=== PATIENT | female | born 1990 | race Caucasian/White ===

== ENCOUNTER → 2019-06-02 | Outpatient (CLI) | payer BC | LOC: LAB FS 09:33 | PROVIDERS: ATTEND Obstetrics & Gynecology | DX: O20.0 Threatened abortion (principal) | CPT/HCPCS: 36415; 84702 ==

== ENCOUNTER 2019-06-04 10:00 | Emergency (ER) | payer BC ==
--- NOTE | 2019-06-04 10:25 | NUR ---
DR YOUNG TALKED WITH PATIENT IN WAITING ROOM DECIDED TO LEAVE .
== END 2019-06-04 10:25 | disposition left against medical advice (07) ==
LOC: EDUNIT# 10:00 → ER 10:01
DX: O20.9 Hemorrhage in early pregnancy, unspecified (principal); Z3A.01 Less than 8 weeks gestation of pregnancy

== ENCOUNTER → 2019-06-06 | Outpatient (CLI) | payer BC | LOC: LAB FS 11:03 | PROVIDERS: ATTEND Obstetrics & Gynecology | DX: O20.0 Threatened abortion (principal); Z3A.00 Weeks of gestation of pregnancy not specified; Z37.9 Outcome of delivery, unspecified | CPT/HCPCS: 36415; 84702 ==

== ENCOUNTER 2019-06-22 05:28 | Outpatient (CLI) | payer BC ==
[~2019-06-22] VITALS: Ht 165 cm; Wt 128.6 kg
[2019-06-22] MEDS ORDERED: PROG200C10 PV (13:15)
[2019-06-22] MEDS ORDERED: SPIR100T4 PO (13:15)
[2019-06-22] MEDS ORDERED: PREN1TAB79 PO (13:15)
[2019-06-22] MEDS ORDERED: LEVO25TA5 PO (13:15)
[2019-06-23] MEDS ORDERED: IBUP-1773 PO (07:11)
[2019-06-23] MEDS ORDERED: HYDR-4226 PO (07:11)
== END 2019-06-22 13:37 | disposition home or self-care (01) ==
LOC: PREOP 05:28
PROVIDERS: ATTEND Obstetrics & Gynecology
DX: Z01.818 Encounter for other preprocedural examination (principal)

== ENCOUNTER → 2019-11-21 | Outpatient (CLI) | payer BC ==
[~2019-11-21] MED LIST: HYDR-4226 PO; IBUP-1773 PO; LEVO25TA5 PO; PREN1TAB79 PO; PROG200C10 PV; SPIR100T4 PO
== END ==
LOC: LAB FS 14:44
PROVIDERS: ATTEND Nurse Practitioner Women's Health
DX: Z32.00 Encounter for pregnancy test, result unknown (principal); E03.9 Hypothyroidism, unspecified
CPT/HCPCS: 36415; 84443; 84702

== ENCOUNTER → 2019-11-25 | Outpatient (CLI) | payer BC | LOC: LAB FS 13:05 | PROVIDERS: ATTEND Nurse Practitioner Women's Health | DX: E03.9 Hypothyroidism, unspecified (principal) | CPT/HCPCS: 36415; 84443; 84702 ==

== ENCOUNTER 2020-01-20 00:04 | Emergency (ER) | payer BC ==
[~2020-01-20] VITALS: Ht 165 cm; Wt 150.8 kg
--- OUTSIDE RECORDS SUMMARY | 2020-01-20 00:13 | XMS REPORT ---
Author Author Socorro BERNSTEIN Organization [facility] Address [address] [place] [address] Care Team Providers Care Manipulative Therapy Specialist Name Role Phone MAGEN BERNSTEIN Unavailable PROBLEMS Type Condition ICD9-CM Code [id number] Code Onset Dates Condition S tatus SNOMED Code Problem Acquired hypothyroidism E03.9 Active [id number] ALLERGIES No Information ENCOUNTERS Encounter Location Date Diagnosis [facility] [address] [place] [address] [id number] [place] [address] Aug, [address] [place] [address] May, [address] [place] [address] May, [facility] [address] [place] [address] May, Possible Z32.[address] [facility] [address] [place] [address] [id number] [place] [address] Mar, [id number] [place] [address] Oct, [facility] [address] [place] [id number] [place] [address] Oct, Abnormal weight gain R63.[address] [facility] [address] [place] [id number] [address] Oct, [facility] [address] [place] [id number] [address] Oct, [facility] [address] [place] [id number] [address] Aug, Acquired hypothyroidism E03.[id number] [place] [address] Aug, [facility] [address] [facility] [id number] [place] [address] Aug, Abnormal weight gain R63.5 [facility] [address] [id number] [place] [address] Aug, IMMUNIZATIONS No Known Immunizations SOCIAL HISTORY Never Assessed REASON FOR VISIT Refill request PLAN OF CARE VITAL SIGNS MEDICATIONS Medication Instructions Dosage Frequency Start Date End Date Duration S tatus Levothyroxine Sodium 25 MCG Orally Once a day 1 tablet on an empty stomach in the morning 24h 30 day(s) Active RESULTS No Results PROCEDURES No Known procedures INSTRUCTIONS MEDICATIONS ADMINISTERED No Known Medications MEDICAL (GENERAL) HISTORY Type Description Date Surgical History Ear Tubes Surgical History tonsillectomy
--- OUTSIDE RECORDS SUMMARY | 2020-01-20 00:13 | XMS REPORT | Continuity of Care Document ---
Author Organization Unknown Address Unknown Phone Unavailable Allergies Active Description Code Type Severity Reaction Onset Reported/Identified Relationship to Patient Clinical Status Yes levofloxacin [id number] Drug Allergy Severe JOINT PAIN/"POP 06/22/2019 Yes sulfamethoxazole [id number] Drug Allergy Severe FLUSHING, HOT, 06/22/2019 Yes trimethoprim [id number] Drug Allergy Severe FLUSHING, HOT, 06/22/2019 Yes cefaclor [id number] Drug Allergy Mild HIVES 06/22/2019 Medications There is no data. Problems Date Dx Coded Attending Type Code Diagnosis Diagnosed By 06/15/2019 WILLIAM ODEN DO, Ot O20.0 THREATENED 06/22/2019 WILLIAM ODEN DO, Ot O20.0 THREATENED 06/22/2019 WILLIAM ODEN DO Ot Z37.9 OUTCOME OF DELIVERY, UNSPECIFIED 06/22/2019 WILLIAM ODEN DO, Ot Z3A.00 WEEKS OF GESTATION OF NOT SPEC 06/23/2019 WILLIAM ODEN DO Ot E03.9 HYPOTHYROIDISM, UNSPECIFIED 06/23/2019 WILLIAM ODEN DO Ot E66.01 MORBID (SEVERE) OBESITY DUE TO EXCESS CA 06/23/2019 WILLIAM ODEN DO Ot F41.8 OTHER SPECIFIED ANXIETY DISORDERS 06/23/2019 WILLIAM ODEN DO Ot O02.1 MISSED 06/23/2019 WILLIAM ODEN DO Ot O73.1 RETAINED PORTIONS OF PLACENTA AND MEMBRA 06/23/2019 WILLIAM ODEN DO Ot Z3A.08 8 WEEKS GESTATION OF 06/23/2019 WILLIAM ODEN DO Ot Z68.42 BODY MASS INDEX (BMI) 45.0-49.9, ADULT 06/23/2019 WILLIAM ODEN DO, Ot Z79.899 OTHER NURSING HOME (CURRENT) DRUG THERAPY 06/23/2019 WILLIAM ODEN DO Ot Z80.3 FAMILY HISTORY OF MALIGNANT NEOPLASM OF 06/23/2019 WILLIAM ODEN DO Ot Z82.49 FAMILY HX OF ISCHEM HEART DIS AND OTH DI 06/23/2019 AKSHAT KAYWILLIAM Ot Z83.3 FAMILY HISTORY OF DIABETES MELLITUS 06/23/2019 AKSHAT WILLIAM KAY Ot Z88.1 ALLERGY STATUS TO OTHER ANTIBIOTIC AGENT 06/23/2019 DAVEYNANDO WILLIAM KAY Ot Z88.2 ALLERGY STATUS TO SULFONAMIDES STATUS 06/23/2019 AKSHAT KAYWILLIAM Ot Z88.8 ALLERGY STATUS TO OTH DRUG/MEDS/BIOL SUB 06/23/2019 AKSHAT KAYWILLIAM Ot Z90.89 ACQUIRED ABSENCE OF OTHER ORGANS 06/30/2019 AKSHAT KAYWILLIAM Ot E03.9 HYPOTHYROIDISM, UNSPECIFIED 06/30/2019 AKSHAT KAYWILLIAM Ot E66.01 MORBID (SEVERE) OBESITY DUE TO EXCESS CA 06/30/2019 DAVEYNANDO WILLIAM KAY Ot F41.8 OTHER SPECIFIED ANXIETY DISORDERS 06/30/2019 DAVEYNANDO WILLIAM KAY Ot O02.1 MISSED 06/30/2019 DAVEYNANDO WILLIAM KAY Ot O73.1 RETAINED PORTIONS OF PLACENTA AND MEMBRA 06/30/2019 AKSHAT WILLIAM KAY Ot Z3A.08 8 WEEKS GESTATION OF 06/30/2019 AKSHAT WILLIAM KAY Ot Z68.42 BODY MASS INDEX (BMI) 45.0-49.9, ADULT 06/30/2019 AKSHAT WILLIAM KAY Ot Z79.899 OTHER NURSING HOME (CURRENT) DRUG THERAPY 06/30/2019 DAVEYNANDO WILLIAM KAY Ot Z80.3 FAMILY HISTORY OF MALIGNANT NEOPLASM OF 06/30/2019 AKSHAT WILLIAM KAY Ot Z82.49 FAMILY HX OF ISCHEM HEART DIS AND OTH DI 06/30/2019 DAVEYNANDO WILLIAM KAY Ot Z83.3 FAMILY HISTORY OF DIABETES MELLITUS 06/30/2019 DAVEYNANDO WILLIAM KAY Ot Z88.1 ALLERGY STATUS TO OTHER ANTIBIOTIC AGENT 06/30/2019 DAVEYNANDO WILLIAM KAY Ot Z88.2 ALLERGY STATUS TO SULFONAMIDES STATUS 06/30/2019 DAVEYNANDO WILLIAM KAY Ot Z88.8 ALLERGY STATUS TO OTH DRUG/MEDS/BIOL SUB 06/30/2019 DAVEYNANDO WILLIAM KAY Ot Z90.89 ACQUIRED ABSENCE OF OTHER ORGANS 06/30/2019 WILLIAM ODEN DO Ot E03.9 HYPOTHYROIDISM, UNSPECIFIED 06/30/2019 DAVEYNANDO WILLIAM KAY Ot E66.01 MORBID (SEVERE) OBESITY DUE TO EXCESS CA 06/30/2019 AKSHAT KAYWILLIAM Ot F41.8 OTHER SPECIFIED ANXIETY DISORDERS 06/30/2019 AKSHAT WILLIAM KAY Ot O02.1 MISSED 06/30/2019 AKSHAT KAYWILLIAM Ot O73.1 RETAINED PORTIONS OF PLACENTA AND MEMBRA 06/30/2019 AKSHAT KAYWILLIAM Ot Z3A.08 8 WEEKS GESTATION OF 06/30/2019 AKSHAT WILLIAM KAY Ot Z68.42 BODY MASS INDEX (BMI) 45.0-49.9, ADULT 06/30/2019 AKSHAT KAYWILLIAM Ot Z79.899 OTHER BUFFING WHEEL RAKER (CURRENT) DRUG THERAPY 06/30/2019 AKSHAT WILLIAM KAY Ot Z80.3 FAMILY HISTORY OF MALIGNANT NEOPLASM OF 06/30/2019 AKSHAT WILLIAM KAY Ot Z82.49 FAMILY HX OF ISCHEM HEART DIS AND OTH DI 06/30/2019 DAVEYNANDO WILLIAM KAY Ot Z83.3 FAMILY HISTORY OF DIABETES MELLITUS 06/30/2019 WILLIAM ODEN DO, Ot Z88.1 ALLERGY STATUS TO OTHER ANTIBIOTIC AGENT 06/30/2019 WILLIAM ODEN DO Ot Z88.2 ALLERGY STATUS TO SULFONAMIDES STATUS 06/30/2019 WILLIAM ODEN DO, Ot Z88.8 ALLERGY STATUS TO [facility] DRUG/MEDS/BIOL SUB 06/30/2019 WILLIAM ODEN DO Ot Z90.89 ACQUIRED ABSENCE OF OTHER ORGANS 07/04/2019 WILLIAM ODEN DO Ot E03.9 HYPOTHYROIDISM, UNSPECIFIED 07/04/2019 WILLIAM ODEN DO Ot E66.01 MORBID (SEVERE) OBESITY DUE TO EXCESS CA 07/04/2019 WILLIAM ODEN DO Ot F41.8 OTHER SPECIFIED ANXIETY DISORDERS 07/04/2019 DAVEYNANDO WILLIAM KAY Ot O02.1 MISSED 07/04/2019 WILLIAM ODEN DO Ot O73.1 RETAINED PORTIONS OF PLACENTA AND MEMBRA 07/04/2019 WILLIAM ODEN DO, Ot Z3A.08 8 WEEKS GESTATION OF 07/04/2019 DAVEYWILLIAM COLLIER DO Ot Z68.42 BODY MASS INDEX (BMI) 45.0-49.9, ADULT 07/04/2019 AKSHAT WILLIAM KAY Ot Z79.899 OTHER NURSING HOME (CURRENT) DRUG THERAPY 07/04/2019 WILLIAM ODEN DO Ot Z80.3 FAMILY HISTORY OF MALIGNANT NEOPLASM OF 07/04/2019 WILLIAM ODEN DO Ot Z82.49 FAMILY HX OF ISCHEM HEART DIS AND OTH DI 07/04/2019 WILLIAM ODEN DO Ot Z83.3 FAMILY HISTORY OF DIABETES MELLITUS 07/04/2019 WILLIAM ODEN DO Ot Z88.1 ALLERGY STATUS TO OTHER ANTIBIOTIC AGENT 07/04/2019 WILLIAM ODEN DO Ot Z88.2 ALLERGY STATUS TO SULFONAMIDES STATUS 07/04/2019 AKSHAT KAY WILLIAM Selby Ot Z88.8 ALLERGY STATUS TO OTH DRUG/MEDS/BIOL SUB 07/04/2019 WILLIAM ODEN DO Ot Z90.89 ACQUIRED ABSENCE OF OTHER ORGANS 11/24/2019 KILTON, KAYJosep B STEERER Ot E03.9 HYPOTHYROIDISM, UNSPECIFIED 11/24/2019 KILTON, KAYI B STEERER Ot Z32.00 ENCOUNTER FOR TEST, RESULT UNK 11/28/2019 KILTON, KAYI B STEERER Ot E03.9 HYPOTHYROIDISM, UNSPECIFIED 11/29/2019 KILTON, KAYI B STEERER Ot E03.9 HYPOTHYROIDISM, UNSPECIFIED 12/10/2019 KILTON, KAYI B STEERER Ot E03.9 HYPOTHYROIDISM, UNSPECIFIED 12/10/2019 KILTON, KAYI B STEERER Ot Z32.00 ENCOUNTER FOR TEST, RESULT UNK 12/10/2019 KILTON, KAYI B STEERER Ot E03.9 HYPOTHYROIDISM, UNSPECIFIED 01/19/2020 KILTON, JOHNI B STEERER Ot E03.9 HYPOTHYROIDISM, UNSPECIFIED Procedures There is no data. Results Test Result Range Serum or plasma choriogonadotropin measu rement (units/volume) - 06/02/19 09:50 Serum or plasma choriogonadotropin measurement (units/ volume) 9553 m[iU]/mL <5 Serum or plasma choriogonadotropin measu rement (units/volume) - 06/06/19 11:15 Serum or plasma choriogonadotropin measurement (units/ volume) 16779 m[iU]/mL <5 Complete blood count (CBC) with automate d white blood cell (WBC) differential - 06/23/19 06:20 Blood leukocytes automated count (number/volume) 9.8 10*3/uL 4.3-11.0 Blood erythrocytes automated count (number/volume) 4.73 10*6/uL 4.35-5.85 Venous blood hemoglobin measurement (mass/volume) 14.1 g/dL 11.5-16.0 Blood hematocrit (volume fraction) 42 % 35-52 Automated erythrocyte mean corpuscular volume 89 [ foz_us] 80-99 Automated erythrocyte mean corpuscular h emoglobin (mass per erythrocyte) 30 pg 25-34 Automated erythrocyte mean corpuscular h emoglobin concentration measurement (mass/volume) 33 g/dL 32-36 Automated erythrocyte distribution width ratio 13. 3 % 10.0- 14.5 Automated blood platelet count (count/volume) 310 10*3/uL 130-400 Automated blood platelet mean volume measurement 9.7 [foz_us] 7.4-10.4 Automated blood neutrophils/100 leukocytes 66 % 42-75 Automated blood lymphocytes/100 leukocytes 23 % 12-44 Blood monocytes/100 leukocytes 10 % 0-12 Automated blood eosinophils/100 leukocytes 2 % 0-10 Automated blood basophils/100 leukocytes 0 % 0-10 Blood neutrophils automated count (number/volume) 6.4 10*3 1.8-7.8 Blood lymphocytes automated count (number/volume) 2.2 10*3 1.0-4.0 Blood monocytes automated count (number/volume) 1. 0 10*3 0.0-1.0 Automated eosinophil count 0.2 10*3/uL 0 .0-0.3 Automated blood basophil count (count/volume) 0.0 10*3/uL 0.0-0.1 Blood type T Indirect antibody screen pa karoline - 06/23/19 06:20 WRISTBAND NUMBER [id number] NRG ABO+Rh group OP NRG Blood group antibody screen NEGATIVE NR G Methicillin resistant Staphylococcus aur eus (MRSA) screening culture - 06/23/19 06:20 Methicillin resistant Staphylococcus aureus (MRSA) scr eening culture NEG NRG Serum or plasma choriogonadotropin measu rement (units/volume) - 11/21/19 15:04 Serum or plasma choriogonadotropin measurement (units/ volume) 516 m[iU]/mL <5 THYROID STIMULATING HORMONE - 11/21/19 1 5:04 THYROID STIMULATING HORMONE 3.57 u[iU]/mL 0.35-4.94 THYROID STIMULATING HORMONE - 03/27/20 1 3:19 THYROID STIMULATING HORMONE 3.04 u[iU]/mL 0.35-4.94 Serum or plasma choriogonadotropin measu rement (units/volume) - 11/25/19 13:19 Serum or plasma choriogonadotropin measurement (units/ volume) 3085 m[iU]/mL <5 Encounters ACCT No. Visit Date/Time Discharge Status Pt. Type Provider Facility Loc./Unit Complaint [id number] 11/25/2019 13:05:00 23:59:59 CLS Outpatient MANNY VALDOVINOS STEERER [facility] FS TSH [id number] 11/21/2019 14:44:00 23:59:59 CLS Outpatient MANNY VALDOVINOS STEERER [facility] FS ENCOUNTER FOR PREGNANC Y TEST [id number] 06/23/2019 05:52:00 10:12:00 DIS Outpatient WILLIAM ODEN DO [facility] SDC MISSED AB [id number] 06/22/2019 05:28:00 13:37:00 DIS Outpatient WILLIAM ODEN DO [facility] PREOP MISSED [id number] 2019 11:03:00 23:59:59 CLS Outpatient WILLIAM ODEN DO [facility] LAB FS O20.0 [id number] 06/04/2019 10:01:00 10:25:00 DIS Emergency NIDHI HERNANDEZ, DAVIDE Mckay [facility] ER 6 WEEKS PREGNAN T, BLEEDING,SHARP PAIN [id number] 06/02/2019 09:33:00 23:59:59 CLS Outpatient WILLIAM ODEN DO [facility] FS O20.0 [id number] 01/20/2020 00:08:[address] Emergency MARIELA MCMILLAN DO [facility] ER 13 1/2 WEEKS PREG,VAG BLEEDI NG
[2020-01-20 00:45] LABS: BILIRUBIN,URINE NEGATIVE (NEGATIVE); CLARITY,URINE SL CLOUDY; COLOR,URINE ORANGE; GLUCOSE, URINE (UA) NEGATIVE (NEGATIVE); KETONES,URINE NEGATIVE (NEGATIVE); LEUKOCYTE ESTERASE ,URINE NEGATIVE (NEGATIVE); NITRITE,URINE NEGATIVE (NEGATIVE); PROTEIN,URINE NEGATIVE (NEGATIVE)
[2020-01-20 00:56] LABS: BACTERIA,URINE TRACE /HPF; RBC,URINE 50-100 /HPF
[2020-01-20 00:57] LABS: CALCIUM OXALATE CRYSTALS,UR FEW /LPF; SQUAMOUS EPITHELIAL CELL,UR 0-2 /HPF
[2020-01-20 01:22] LABS: BASOPHILS % (AUTO) 0 % (0-10); EOSINOPHILS # (AUTO) 0.1 10^3/uL (0.0-0.3); EOSINOPHILS % (AUTO) 1 % (0-10); HEMATOCRIT 41 % (35-52); HEMOGLOBIN 13.7 G/DL (11.5-16.0); LYMPHOCYTES # (AUTO) 1.9 X 10^3 (1.0-4.0); LYMPHOCYTES % (AUTO) 15 % (12-44); MEAN CORPUSCULAR HEMOGLOBIN 30 PG (25-34); MEAN CORPUSCULAR HGB CONC 34 G/DL (32-36); MEAN CORPUSCULAR VOLUME 89 FL (80-99); MEAN PLATELET VOLUME 9.6 FL (7.4-10.4); MONOCYTES % (AUTO) 8 % (0-12); NEUTROPHILS # (AUTO) 9.8 X 10^3 (1.8-7.8); NEUTROPHILS % (AUTO) 76 % (42-75); PLATELET COUNT 296 10^3/uL (130-400); RED CELL DISTRIBUTION WIDTH 13.2 % (10.0-14.5); WHITE BLOOD COUNT 12.9 10^3/uL (4.3-11.0)
[2020-01-20 01:35] LABS: CHLORIDE 104 MMOL/L (98-107); POTASSIUM 3.8 MMOL/L (3.6-5.0); SODIUM 137 MMOL/L (135-145)
[2020-01-20 01:36] LABS: CALCIUM 9.6 MG/DL (8.5-10.1); GLUCOSE 104 MG/DL (70-105)
[2020-01-20 01:38] LABS: CARBON DIOXIDE 22 MMOL/L (21-32)
[2020-01-20 01:40] LABS: CREATININE SERUM 0.65 MG/DL (0.60-1.30); GFR ESTIMATED > 60
[2020-01-20 01:41] LABS: BUN/CREATININE RATIO 18
--- NOTE | 2020-01-20 02:18 | ED GU-Female ---
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 Pt states she is 13.5 wks , LMP 10/18/19. Pt states she has had 2 prior miscarriages, last one being in May 2019 when she was 6 wks and had to get a D&C. Pt denies any pain or cramping at this time. Nursing Sepsis Screen: No Definite Risk Source: patient History of Present Illness Date Seen by Provider: January 20, 2020 Time Seen by Provider: 00:20 Initial Comments PT ARRIVES VIA POV FROM HOME C/O VAGINAL BLEEDING. PT STATES SHE IS 13 1/2 WEEKS . LMP 10/18/19. EDC 07/24/20 HAD ROUTINE VISIT YESTERDAY WITH DR. ODEN--STATES IN-OFFICE ULTRASOUND WAS DONE FOR HEART TONES, DUE TO NOT BEING ABLE TO HEAR WITH REGULAR DOPPLER, DUE TO BODY HABITUS STATES SHE WOKE UP AROUND 2240 AND HAD BRIGHT RED BLOOD ON THE TISSUE WHEN SHE WIPED AND THERE WAS A LITTLE BLOOD IN THE TOILET. STATES BLEEDING HAS STOPPED NOW. PT HAS NOT USED ANY PADS OR TAMPONS, AND HAS NOT SOAKED HER CLOTHING NO PAIN OR CRAMPING NO VAGINAL DISCHARGE NO URINARY SYMPTOMS NO FEVER HAS HAD ONGOING SLIGHT NAUSEA, NOT NOW, AND NO DIFFERENT THAN NORMAL PT IS AB 2--D&C X 1. FIRST TRIMESTER MISCARRIAGES PT STATES SHE HAS ANTIPHOSPHOLIPID SYNDROME, AND IS TAKING A BLOOD THINNER SINCE BECOMING NO FEVER OR RECENT ILLNESS NO KNOWN SICK CONTACTS OR EXPOSURE TO CORONAVIRUS NO RECENT TRAVEL PCP: [facility] MERCHANDISE PICKUP/RECEIVING ASSOCIATE: DR. ODEN Allergies and Home Medications Allergies Coded Allergies: levofloxacin (Verified Allergy, Severe, JOINT PAIN/"POPPING", 06/22/19) sulfamethoxazole (Verified Allergy, Severe, FLUSHING, HOT, DIZZY, N/V, 06/22/19) trimethoprim (Verified Allergy, Severe, FLUSHING, HOT, DIZZY, N/V, 06/22/19) cefaclor (Verified Allergy, Mild, HIVES, 06/22/19) Home Medications Hydrocodone/Acetaminophen 1 Each Tablet, 1 TAB PO Q4-6HR Prescribed by: WILLIAM ODEN on 06/23/19710 Ibuprofen 600 Mg Tablet, 600 MG PO Q6H Prescribed by: WILLIAM ODEN on 06/23/19710 Levothyroxine Sodium 25 Mcg Tablet, 25 MCG PO DAILY, (Reported) Vit W-Ca,Fe,FA(<1 mg) 1 Each Tablet, 1 EACH PO DAILY, (Reported) Spironolactone 100 Mg Tablet, 100 MG PO BID, (Reported) Patient Home Medication List Home Medication List Reviewed: Yes Review of Systems Review of Systems Constitutional: no symptoms reported; No chills, No diaphoresis, No fever Respiratory: no symptoms reported Cardiovascular: no symptoms reported Gastrointestinal: no symptoms reported Genitourinary: see HPI : Yes LMP: Oct 18, 2019 Musculoskeletal: no symptoms reported Skin: no symptoms reported Psychiatric/Neurological: No Symptoms Reported Endocrine: No Symptoms Reported Past Ijndiyi-Gcmtrs-Ywanrk Hx Past Med/Social Hx: Reviewed and Corrections made Patient Social History Alcohol Use: Denies Use Recreational Drug Use: No Smoking Status: Never a Smoker 2nd Hand Smoke Exposure: No Recent Foreign Travel: No Contact w/Someone Who Travel: No Recent Infectious Disease Expo: No Recent Hopitalizations: No Seasonal Allergies Seasonal Allergies: Yes Past Medical History Surgeries: Yes (BMT, uteral septum removed, D&C May 2019) Adenoidectomy, Tonsillectomy Respiratory: No Cardiac: No Neurological: Yes Headaches /Migraines Reproductive Disorders: Yes (MISCARRIAGES X 2--ANTIPHOSPHOLIPID SYNDROME) Female Reproductive Disorders: Menstrual Problems, Ovarian Cyst, Polycystic Ovarian Dis Sexually Transmitted Disease: No HIV/AIDS: No Genitourinary: No Gastrointestinal: Yes Gastroesophageal Reflux Musculoskeletal: No Endocrine: Yes (MORBID OBESITY) Hypothyroidsim HEENT: No Loss of Vision: Denies Hearing Impairment: Denies Cancer: No Psychosocial: Yes (MILD) Anxiety Integumentary: No Blood Disorders: No Adverse Reaction/Blood Tranf: No Physical Exam Vital Signs Vital Signs - First Documented 01/20/20 00:27 Temp 36.8 Pulse 94 Resp 21 B/P (MAP) 139/68 (91) Pulse Ox 97 O2 Delivery Room Air Capillary Refill : Less Than 3 Seconds Height, Weight, BMI Height: '" Weight: lbs. oz. kg; 55.00 BMI Method: General Appearance: no apparent distress, obese (MORBIDLY OBESE WITH LARGE PANNUS) Cardiovascular: regular rate, rhythm, no murmur Respiratory: normal breath sounds, no respiratory distress, no accessory muscle use Gastrointestinal: non tender, soft Back: normal inspection, no CVA tenderness, no vertebral tenderness Extremities: normal inspection Neurologic/Psychiatric: lotus notes administrator II-XII nml as tested, no motor/sensory deficits, alert, normal mood/affect, oriented x 3 Skin: normal color, warm/dry Progress/Results/Core Measures Suspected Sepsis Recent Fever Within 48 Hours: No Infection Criteria Present: None New/Unexplained Altered Menta: No Sepsis Screen: No Definite Risk SIRS Temperature: Pulse: 94 Respiratory Rate: 21 Laboratory Tests 01/20/20 01:15: White Blood Count 12.9H Blood Pressure 139 /68 Mean: 91 Laboratory Tests 01/20/20 01:15: Creatinine 0.65, Platelet Count 296 Results/Orders Lab Results My Orders Vital Signs/I&O Capillary Refill : Less Than 3 Seconds Blood Pressure Mean: 91 Progress Note : Progress Note NO BLEEDING OR ANY SYMPTOMS DURING ER STAY PT STATES BLEEDING HAS STOPPED FOR NOW Departure Impression Primary Impression: Threatened in early Disposition: 01 HOME, SELF-CARE Condition: Improved Departure-Patient Inst. Referrals: [facility] ([place]P) Primary Care Physician MAGEN BERNSTEIN (Family) Primary Care Physician WILLIAM ODEN DO Patient Instructions: Bleeding With (DC), Threatened Miscarriage (DC) Add. Discharge Instructions: NOTHING IN VAGINA--NO TAMPONS, DOUCHING OR INTERCOURSE TYLENOL NEEDED FOR PAIN KEEP AN ACCURATE PAD COUNT--RETURN TO ER IF SOAKING MORE THAN 1 MAXI PAD AN HOUR FOLLOW UP WITH DR. ODEN IN THE NEXT COUPLE OF DAYS FOR FURTHER CARE--CALL THIS AM TO MAKE AN APPOINTMENT All discharge instructions reviewed with patient and/or family. Voiced understanding. MARIELA MCMILLAN DO January 20, 2020 02:18
[2020-01-20 02:37] VITALS: BP 132/72
== END 2020-01-20 02:39 | disposition home or self-care (01) ==
LOC: EDUNIT# 00:04 → ER 00:08
DX: O20.0 Threatened abortion (principal); O99.351 Diseases of the nervous system complicating pregnancy, first trimester; G43.909 Migraine, unspecified, not intractable, without status migrainosus; O99.281 Endocrine, nutritional and metabolic diseases complicating pregnancy, first trimester; E03.9 Hypothyroidism, unspecified; O99.211 Obesity complicating pregnancy, first trimester; E66.01 Morbid (severe) obesity due to excess calories; Z3A.13 13 weeks gestation of pregnancy; Z88.1 Allergy status to other antibiotic agents; Z88.2 Allergy status to sulfonamides
CPT/HCPCS: 36415; 80048; 81000; 84702; 84703; 85025; 86900; 86901; 87088

== ENCOUNTER → 2020-03-07 | Outpatient (CLI) | payer BC ==
--- NOTE | 2020-03-07 11:43 | Diagnostic Imaging Report ---
INDICATION: survey. TECHNIQUE: Multiple real-time grayscale images were obtained over the gravid uterus. COMPARISON: None. FINDINGS: Study is significantly limited due to patient's very large body habitus. There is a fetus in a breech presentation with a heart rate of 143 BPM. Placenta appears to be to the left. Overall amniotic fluid volume appears normal. Cervical length is approximately 3.6 cm. survey is somewhat limited due to patient's body habitus. bladder and stomach are visualized. The kidneys were not well visualized. The brain as well as four-chamber heart views were poorly visualized. The three-vessel cord, cord insertion, and spine were poorly visualized. Biometrical measurements are as follows: Biparietal 4.5 cm, age 19 weeks 5 days. Head circumference 17.87 cm, age 20 weeks 3 days. Abdominal circumference 15.02 cm, age 20 weeks 2 days. Femur length 3.08 cm, age 19 weeks 4 days. Sonographic estimate age: 20 weeks 0 days. Sonographic estimated date of delivery: 07/25/2020. Estimated Weight: 323 gm (+/- 47 gm). LMP percentile: 35%. heart rate: 143 beats per minute. number: 1 of 1. IMPRESSION: Severely compromised study due to patient's large body habitus. There is a single live fetus measuring approximately 20 weeks 0 days gestation with estimated date of confinement of 07/25/2020. survey is markedly limited. Dictated by: Dictated on workstation # [id number]
== END ==
LOC: RAD 09:19
PROVIDERS: ATTEND Nurse Practitioner Women's Health
DX: Z34.92 Encounter for supervision of normal pregnancy, unspecified, second trimester (principal); Z3A.20 20 weeks gestation of pregnancy
CPT/HCPCS: 76805

== ENCOUNTER 2020-07-18 05:59 | Inpatient (IN) | payer BC ==
[~2020-07-18] VITALS: Ht 165.1 cm; Wt 152.0 kg
[2020-07-18] VITALS (50 sets, daily range): BP systolic 123–171; BP diastolic 57–102
--- NOTE | 2020-07-18 06:10 | NUR ---
HUNTER SOLIS presented to unit via AMBULATORY from ED, accompanied by ADULT MALE, with c/o INDUCTION. HUNTER SOLIS weighed, gowned, voided, and to bed. EFHM and TOCO applied. HUNTER SOLIS oriented to bed controls, call light, TV, heat, and A/C controls.
[2020-07-18] MEDS ORDERED: MINERAL OIL CONCENTRATE 99.9% 15 ML UDC TOP PRN (07:45)
--- NOTE | 2020-07-18 08:06 | History & Physical-OB ---
OB - Chief Complaint & HPI Date/Time Date of Admission: Date of Admission: Jul 18, 2020 at 05:59 Date seen by a Provider: Jul 18, 2020 Time Seen by a Provider: 07:45 Chief Complaint/History OB-Reason for Admission/Chief: Induction of Labor Hx : 1 Hx Para: 0 Expected Date of Delivery: Jul 24, 2020 Gestational Age in Weeks: 39 Gestational Age in Days: 1 Other reason for admission: Induction of labor Admission Nurse Assessment Rev: Yes Allergies and Home Medications Allergies Coded Allergies: levofloxacin (Verified Allergy, Severe, JOINT PAIN/"POPPING", 06/22/19) sulfamethoxazole (Verified Allergy, Severe, FLUSHING, HOT, DIZZY, N/V, 06/22/19) trimethoprim (Verified Allergy, Severe, FLUSHING, HOT, DIZZY, N/V, 06/22/19) cefaclor (Verified Allergy, Mild, HIVES, 06/22/19) Home Medications Hydrocodone/Acetaminophen 1 Each Tablet, 1 TAB PO Q4-6HR Prescribed by: WILLIAM ODEN on 06/23/19 07 Ibuprofen 600 Mg Tablet, 600 MG PO Q6H Prescribed by: WILLIAM ODEN on 06/23/19 0711 Levothyroxine Sodium 25 Mcg Tablet, 25 MCG PO DAILY, (Reported) Vit W-Ca,Fe,FA(<1 mg) 1 Each Tablet, 1 EACH PO DAILY, (Reported) Spironolactone 100 Mg Tablet, 100 MG PO BID, (Reported) Patient Home Medication List Home Medication List Reviewed: Yes OB - History Hx of Present Care: Yes Ultrasounds: Normal mid trimester US Obstetrical Complications: None Medical Complications: None Delivery History Adverse Rxn to Tranfusion: No Patient Past Medical History BMI >50 Social History/Family History HIV/AIDS: No Sexually Transmitted Disease: No 2nd Hand Smoke Exposure: No OB - Admission Exam Physical Exam HEENT: NCAT Heart: Rhythm Normal Lungs: Clear Abdomen: Gravid Extremities: Normal Reflexes: Normal Cervical Dilatation: 3cm Effacement: 75% Station: -1 Membranes: Intact Heart Rate: 130's Accelerations: Accelerations Present Decelerations: No Decelerations Short Term Variability: Present Mcfp Variability: Average (6-25) Contractions on Admission: >10 Minutes Apart Intensity: Mild OB - Assessment/Plan/Diagnosis Assessment Assessment: induction of labor Admission Dx 30 yo @ 39 weeks Induction of labor GBS neg BMI > 50 Admission Status: Inpatient Order (span 2 midnights) Reason for Inpatient Admission: Induction of labor at term Plan Plan: Induction Induction Method: WILLIAM LE DO Jul 18, 2020 08:06
[2020-07-18 08:20] LABS: BASOPHILS % (AUTO) 0 % (0-10); EOSINOPHILS # (AUTO) 0.1 10^3/uL (0.0-0.3); EOSINOPHILS % (AUTO) 1 % (0-10); HEMATOCRIT 41 % (35-52); HEMOGLOBIN 13.5 g/dL (11.5-16.0); LYMPHOCYTES # (AUTO) 1.5 10^3/uL (1.0-4.0); LYMPHOCYTES % (AUTO) 12 % (12-44); MEAN CORPUSCULAR HEMOGLOBIN 28 pg (25-34); MEAN CORPUSCULAR HGB CONC 33 g/dL (32-36); MEAN CORPUSCULAR VOLUME 86 fL (80-99); MEAN PLATELET VOLUME 10.1 fL (9.0-12.2); MONOCYTES % (AUTO) 8 % (0-12); NEUTROPHILS # (AUTO) 9.4 10^3/uL (1.8-7.8); NEUTROPHILS % (AUTO) 77 % (42-75); PLATELET COUNT 246 10^3/uL (130-400); WHITE BLOOD COUNT 12.2 10^3/uL (4.3-11.0)
[2020-07-18] MEDS: D5 LR IV SOLUTION 1,000 ML IV SCH ×2 (09:13→16:45)
[2020-07-18] MEDS ORDERED: OXYTOCIN PRE-MIX DRIP 500 ML IV SCH ×2 (09:53→21:37)
[2020-07-18] MEDS ORDERED: CATHETER FLUSH 10 ML SYR IV SCH ×2 (14:00→22:00)
[2020-07-18] MEDS ORDERED: CLINDAMYCIN 900 MG/50 ML IVPB 50 ML IV ONE (21:14)
[2020-07-18] MEDS ORDERED: CITRIC ACID/SOB CIT (BICITRA) 30 ML UDC ONE (21:14)
[2020-07-18] MEDS ORDERED: METOCLOPRAMIDE INJ 10 MG/2 ML (REGLAN) ONE (21:14)
[2020-07-18] MEDS ORDERED: FAMOTIDINE 20MG/2ML IV (PEPCID) ONE (21:15)
[2020-07-18] MEDS: LACTATED RINGERS 1,000 ML IV PRN ×2 (21:28→22:27)
[2020-07-18] MEDS ORDERED: CITRIC ACID/SOB CIT (BICITRA) 30 ML UDC PO ONE ×2 (21:30→22:00)
[2020-07-18] MEDS ORDERED: METOCLOPRAMIDE INJ 10 MG/2 ML (REGLAN) IV ONE ×2 (21:30→22:00)
[2020-07-18] MEDS ORDERED: CATHETER FLUSH 10 ML SYR IV PRN (21:30)
[2020-07-18] MEDS ORDERED: FAMOTIDINE 20MG/2ML IV (PEPCID) IV ONE ×2 (21:30→22:00)
--- NOTE | 2020-07-18 21:37 | Progress Note ---
Standard Progress Note Progress Notes/Assess & Plan Date Seen by a Provider: Jul 18, 2020 Time Seen by a Provider: 21:15 Progress/Assessment & Plan Patient evaluated and found to have made little to no change. She reports getting very uncomfortable and breathing through contractions rating them 8- 9/10. Her contraction pattern is regular and has been for the past 4 hours, she has reached a max dose of 20mu Pitocin. The is a small caput noted on the presenting vertex. I discussed with the patient CPD highly suspected due to lack of progress. We reviewed continuing induction vs. PLTCS. Risk involved in each, after discussion with her , both she and him were agreeable to proceed. OR staff notified. WILLIAM ODEN DO Jul 18, 2020 21:37
[2020-07-18] MEDS ORDERED: ONDANSETRON 4 MG/2 ML (SDV) Z0FRAN ONE (21:43)
[2020-07-18] MEDS ORDERED: MEASLES,MUMPS,RUBELLA 1 EA INJ SC SCH (21:45)
[2020-07-18] MEDS ORDERED: TETANUS,DIPTH,PERTUSS P/F (BOOSTRIX) 0.5 ML VIAL IM SCH (21:45)
[2020-07-18] MEDS ORDERED: ONDANSETRON 4 MG/2 ML (SDV) Z0FRAN IVP PRN (21:45)
[2020-07-18] MEDS ORDERED: fentaNYL INJECTION 100 MCG/2 ML AMP ONE (21:47)
[2020-07-18] MEDS ORDERED: OXYTOCIN PRE-MIX DRIP 1,000 ML IV ONE (23:02)
[2020-07-18] MEDS ORDERED: KETOROLAC 30 MG/ML VIAL ONE (23:02)
[2020-07-18] MEDS: KETOROLAC 30 MG/ML VIAL IV SCH (23:05)
--- NOTE | 2020-07-18 23:29 | Anesthesia-Regional Post-Op ---
Regional Patient Condition Mental Status: Alert, Oriented x3 Circulation: Same as Pre-Op Headache: Absent Sensation: Full Recovery Motor Block: Absent Post Op Complications Complications None Follow Up Care/Instructions Patient Instructions None needed. Anesthesia/Patient Condition Patient is doing well, no complaints, stable vital signs, no apparent adverse anesthesia problems. No complications reported per nursing. JULIANA MACIEL CRNA Jul 18, 2020 23:29
[2020-07-18] MEDS ORDERED: diphenhydrAMINE 50 MG/ML INJ (BENADRYL) IV PRN (23:30)
[2020-07-18] MEDS ORDERED: ONDANSETRON 4 MG/2 ML (SDV) Z0FRAN IV PRN (23:30)
[2020-07-18] MEDS ORDERED: NALOXONE 0.4 MG/ML 1 ML (NARCAN) VIAL IV PRN ×2 (23:30)
[2020-07-18] MEDS ORDERED: METOCLOPRAMIDE INJ 10 MG/2 ML (REGLAN) IV PRN (23:30)
[2020-07-19] VITALS (8 sets, daily range): BP systolic 128–149; BP diastolic 66–95
--- NOTE | 2020-07-19 00:10 | NUR ---
PT TO ROOM FROM RECOVERY BY BED AT THIS TIME. BEDSIDE REPORT RECEIVED FROM Naya RIVERA RN
--- NOTE | 2020-07-19 00:30 | NUR ---
ASSISTANCE GIVEN WITH . LATCH OBTAINED WITH NIPPLE SHIELD.
--- NOTE | 2020-07-19 01:50 | NUR ---
PT REQUESTS PAIN MEDS. STATES IS SENSITIVE TO MEDS SO WILL ADMINISTER 1 TAB AT THIS TIME.
[2020-07-19] MEDS: HYDROcodone/APAP 5 MG/325 MG (LORTAB) TAB PO PRN ×3 (01:53→22:38)
--- NOTE | 2020-07-19 03:30 | NUR ---
PERICARE COMPLETED. LOCHIA LIGHT.
[2020-07-19] MEDS: KETOROLAC 30 MG/ML VIAL IV SCH ×3 (05:12→18:07)
--- NOTE | 2020-07-19 05:15 | NUR ---
PT AWAKE AND BEGINNING TO FEEL LIKE SHE NEEDS TO VOID. WILL ADMINISTER TORADOL AT THIS TIME AND GET UP AFTER IT TAKE EFFECT.
[2020-07-19 05:45] LABS: BASOPHILS % (AUTO) 0 % (0-10); EOSINOPHILS % (AUTO) 0 % (0-10); HEMATOCRIT 38 % (35-52); HEMOGLOBIN 12.6 g/dL (11.5-16.0); LYMPHOCYTES # (AUTO) 0.9 10^3/uL (1.0-4.0); LYMPHOCYTES % (AUTO) 5 % (12-44); MEAN CORPUSCULAR HEMOGLOBIN 29 pg (25-34); MEAN CORPUSCULAR HGB CONC 33 g/dL (32-36); MEAN CORPUSCULAR VOLUME 87 fL (80-99); MEAN PLATELET VOLUME 10.4 fL (9.0-12.2); MONOCYTES # (AUTO) 0.8 10^3/uL (0.0-1.0); MONOCYTES % (AUTO) 5 % (0-12); NEUTROPHILS # (AUTO) 15.5 10^3/uL (1.8-7.8); NEUTROPHILS % (AUTO) 89 % (42-75); PLATELET COUNT 230 10^3/uL (130-400); WHITE BLOOD COUNT 17.4 10^3/uL (4.3-11.0)
--- NOTE | 2020-07-19 05:45 | NUR ---
ASSIST X2 WITH GETTING PT UP TO BATHROOM. PT WHIT VERY WELL. VOIDED 900 CC WITHOUT DIFFICULTY. PERICARE COMPLETED. PT RETURNED TO BED.
--- NOTE | 2020-07-19 06:48 | Postpartum Progress Note ---
Note Note Day # 1 Subjective: Patient is without complaints. Ambulating, voiding. Tolerating a regular diet without nausea or vomiting. Normal lochia. Pain is well controlled with oral pain medications. Objective: Physical Exam: General - Alert and oriented, no apparent distress Abdomen - Soft, appropriately tender to palpation, non-distended, fundus firm at umbilicus Extremities - no edema, negative Derrick's bilaterally Incision- c/d/i Assessment: POD 1 PLTCS Acute blood loss anemia BMI > 55 Elevated DVT risk Plan: Routine care. Encourage breast feeding. Encourage ambulation. Ferrous sulfate supplementation. Plan for discharge tomorow Vitals - Labs Vital Signs - I&O Vital Signs Date Time Temp Pulse Resp B/P (MAP) Pulse Ox O2 Delivery O2 Flow Rate FiO2 07/19/20 00:10 36.9 20 149/82 (104) 99 Room Air 07/19/20 00:10 Room Air 07/19/20 00:00 Room Air 07/19/20 00:00 20 130/95 (107) 99 Room Air 07/18/20 23:50 20 139/72 (94) 99 Room Air 07/18/20 23:45 Room Air 07/18/20 23:40 20 140/72 (94) 99 Room Air 07/18/20 23:30 20 139/72 (94) 99 Room Air 07/18/20 23:30 Room Air 07/18/20 23:20 20 123/82 (96) 98 Room Air 07/18/20 23:13 Room Air 07/18/20 23:13 36.9 20 151/80 (103) 100 Room Air 07/18/20 21:45 37.3 100 20 127/59 (81) Room Air 07/18/20 21:30 20 Room Air 07/18/20 21:15 20 Room Air 07/18/20 21:00 37.6 103 20 156/96 (116) Room Air 07/18/20 20:45 97 20 136/66 (89) Room Air 07/18/20 20:30 82 20 135/69 (91) Room Air 07/18/20 20:15 20 Room Air 07/18/20 20:00 107 18 148/71 (96) Room Air 07/18/20 19:45 106 18 134/85 (101) Room Air 07/18/20 19:30 20 Room Air 07/18/20 19:15 37.3 93 20 157/72 (100) Room Air 07/18/20 19:00 98 20 150/70 (96) Room Air 07/18/20 18:45 100 20 134/61 (85) Room Air 07/18/20 18:30 105 20 171/96 (121) Room Air 07/18/20 18:15 96 20 160/91 (114) Room Air 07/18/20 18:00 95 20 145/85 (105) Room Air 07/18/20 17:45 37.9 93 20 154/65 (94) Room Air 07/18/20 17:30 101 20 147/65 (92) Room Air 07/18/20 17:15 Room Air 07/18/20 17:00 96 20 154/67 (96) Room Air 07/18/20 16:45 82 20 148/66 (93) Room Air 07/18/20 16:30 95 20 146/65 (92) Room Air 07/18/20 16:15 126 20 157/93 (114) Room Air 07/18/20 16:00 133 20 147/92 (110) Room Air 07/18/20 15:45 36.2 129 20 165/93 (117) Room Air 07/18/20 15:30 Room Air 07/18/20 15:15 98 20 140/68 (92) Room Air 07/18/20 15:00 98 20 131/61 (84) Room Air 07/18/20 14:45 102 20 158/87 (110) Room Air 07/18/20 14:30 104 20 148/85 (106) Room Air 07/18/20 14:15 112 20 136/69 (91) Room Air 07/18/20 14:00 112 20 128/70 (89) Room Air 07/18/20 13:45 37.8 110 20 130/72 (91) Room Air 07/18/20 13:30 110 20 127/63 (84) Room Air 07/18/20 13:18 104 20 166/93 (117) Room Air 07/18/20 13:15 103 20 161/81 (107) Room Air 07/18/20 12:45 100 20 133/57 (82) Room Air 07/18/20 12:30 Room Air 07/18/20 12:15 104 20 129/57 (81) Room Air 07/18/20 12:00 104 20 138/59 (85) Room Air 07/18/20 11:45 107 20 154/68 (96) Room Air 07/18/20 11:30 37.1 112 20 135/66 (89) Room Air 07/18/20 11:15 116 20 156/99 (118) Room Air 07/18/20 11:00 116 20 156/99 (118) Room Air 07/18/20 10:45 135/62 (86) Room Air 07/18/20 10:30 98 20 135/62 (86) Room Air 07/18/20 10:15 110 20 136/61 (86) Room Air 07/18/20 09:45 108 20 145/78 (100) Room Air 07/18/20 09:16 116 20 148/81 (103) Room Air 07/18/20 09:15 118 20 135/102 (113) Room Air 07/18/20 08:35 109 20 136/99 (111) Room Air 07/18/20 08:15 36.3 110 20 98 Room Air 07/18/20 08:15 36.3 110 20 128/82 (97) Room Air I & O 07/19/20 07:00 Intake Total 2050 ml Output Total 165 ml Balance 1885 ml Labs Laboratory Tests 07/18/20 08:00: White Blood Count 12.2H, Red Blood Count 4.77, Hemoglobin 13.5, Hematocrit 41, Mean Corpuscular Volume 86, Mean Corpuscular Hemoglobin 28, Mean Corpuscular Hemoglobin Concent 33, Red Cell Distribution Width 14.6H, Platelet Count 246, Mean Platelet Volume 10.1, Immature Granulocyte % (Auto) 2, Neutrophils (%) ( Auto) 77H, Lymphocytes (%) (Auto) 12, Monocytes (%) (Auto) 8, Eosinophils (%) (Auto) 1, Basophils (%) (Auto) 0, Neutrophils # (Auto) 9.4H, Lymphocytes # (Auto) 1.5, Monocytes # (Auto) 1.0, Eosinophils # (Auto) 0.1, Basophils # (Auto) 0.0, Immature Granulocyte # (Auto) 0.2H 07/18/20 08:15: Coronavirus (COVID-19)(PCR) Negative 07/19/20 05:27: White Blood Count 17.4H, Red Blood Count 4.38, Hemoglobin 12.6, Hematocrit 38, Mean Corpuscular Volume 87, Mean Corpuscular Hemoglobin 29, Mean Corpuscular Hemoglobin Concent 33, Red Cell Distribution Width 14.4, Platelet Count 230, Mean Platelet Volume 10.4, Immature Granulocyte % (Auto) 1, Neutrophils (%) (Auto) 89H, Lymphocytes (%) (Auto) 5L, Monocytes (%) (Auto) 5, Eosinophils (%) (Auto) 0, Basophils (%) (Auto) 0, Neutrophils # (Auto) 15.5H, Lymphocytes # (Auto) 0.9L, Monocytes # (Auto) 0.8, Eosinophils # (Auto) 0.0, Basophils # (Auto) 0.0, Immature Granulocyte # (Auto) 0.2H WILLIAM ODEN DO Jul 19, 2020 06:48
--- NOTE | 2020-07-19 07:25 | NUR ---
Assisted to BR with Wanda Wallace RN - voided 350mls - dionna care by RN. 0930 Up to BR independently - voided 150 mls - per care by RN due to pt's obesity and recent surgery.
--- NOTE | 2020-07-19 07:35 | Anesthesia-Regional Post-Op ---
Regional Patient Condition Mental Status: Alert, Oriented x3 Circulation: Same as Pre-Op Headache: Absent Sensation: Full Recovery Motor Block: Absent Post Op Complications Complications None Follow Up Care/Instructions Patient Instructions None needed. Anesthesia/Patient Condition Patient is doing well, no complaints, stable vital signs, no apparent adverse anesthesia problems. No complications reported per nursing. KATIE STUART CRNA Jul 19, 2020 07:35
[2020-07-19 08:06] LABS: BAND NEUTROPHILS 5 %; BASOPHILS % (MANUAL) 0 %; EOSINOPHILS % (MANUAL) 0 %; LYMPHOCYTES % (MANUAL) 8 %; MONOCYTES % (MANUAL) 2 %; NEUTROPHILS % (MANUAL) 85 %; RBC MORPH NORMAL
[2020-07-19] MEDS: DOCUSATE SODIUM 100 MG (COLACE) CAP PO SCH ×2 (09:44→21:23)
[2020-07-19] MEDS: ENOXAPARIN 60 MG/0.6 ML (LOVENOX) SYR SQ SCH ×2 (09:49→21:23)
--- NOTE | 2020-07-19 09:59 | OPERATIVE REPORT ---
DATE OF SERVICE: PREOPERATIVE DIAGNOSES: 1. A 30-year-old G3, P0 at 39 weeks and 1 day gestation. 2. Cephalopelvic disproportion. 3. BMI of 55. POSTOPERATIVE DIAGNOSES: 1. A 30-year-old G3, P0 at 39 weeks and 1 day gestation. 2. Cephalopelvic disproportion. 3. BMI of 55. PROCEDURE: Primary low transverse section. SURGEON: Salomón Muñoz DO CUSTOMER COUNTER REPRESENTATIVE: Vianey Sanabria DNP, who was necessary for manipulation and retraction throughout the procedure. ANESTHESIA: Spinal. URINE OUTPUT: 350 mL. URINE OUTPUT: 1605 mL clear at the end of procedure. FLUIDS: 1600 mL lactated Ringer's solution. FINDINGS: A live female weighing 7 pounds 10 ounces, Apgars of 9 and 9. Grossly normal appearing uterus, bilateral fallopian tubes and ovaries. SPECIMEN SENT: None. INDICATIONS FOR PROCEDURE: This 30-year-old female is the patient was brought in for induction at 39 weeks. This was an elective induction decision by the patient. Artificial rupture of membranes and Pitocin augmentation was used to maximum dose of 20 milliunits per minute, at which point, the patient was in a good contraction pattern for greater than 4 hours and made little to no cervical change. Her maximum dilatation was 3 cm. Due to failure to progress and no descent, on examination, the patient was diagnosed with cephalopelvic disproportion and I consulted the patient about proceeding with versus continued induction. Risks of the procedure versus continued induction were reviewed with the patient in detail. After all of her questions were answered with her present, I made the decision to proceed with primary . After which consent was obtained, the patient was taken to the operating room. OPERATIVE REPORT IN DETAIL: Once in the operating room, spinal analgesia was found to be adequate, placed in supine position with leftward tilt, prepped and draped in normal sterile fashion. Her panniculus is in the way so, using towel clamps to retract the panniculus cephalad to retraction candy canes at the top of the bed. After this, anesthesia was tested and found to be adequate. A timeout was performed. A Pfannenstiel skin incision was made with a knife and carried down to underlying fascia using Bovie cautery. Fascial incision extended laterally using Bovie cautery. Superior aspect of fascial incision was then grasped with Dominic clamps, tented up and dissected off the underlying rectus muscles. Inferior aspect of the fascial incision was then grasped with Dominic clamps, tented up and dissected off the rectus muscles. The rectus muscles were then dissected down the midline using blunt traction, which exposed the peritoneum, which I entered bluntly and extended using blunt traction. An Duncan ring retractor was placed in the peritoneal incision, which offers excellent lateral sidewall retraction. I identified the lower uterine segment, which was found to be thinned out and I make a low transverse incision to the vesicouterine peritoneum and bluntly dissected off the lower uterine segment. I proceeded with myotomy until membranes were visualized, at which point I extended the uterine incision laterally and superiorly using bandage scissors. Amniotomy through the incision was performed; in the process of doing this, clear fluid was noted. The infant was found in vertex presentation, occiput posterior. With gentle fundal pressure, the infant's head was elevated up the incision where the nares and oropharynx are bulb suctioned after delivery of the head. Anterior and posterior shoulders were delivered. The was then brought to the operative field where cord doubly clamped and cut and was handed off to waiting nurses in attendance. Cord blood was collected, 3-vessel cord with intact placenta was delivered spontaneously thereafter. IV Pitocin was initiated to facilitate uterine contraction. Uterine fundus became firmer with bimanual massage. Uterus was then exteriorized and cleared of all endometrial clots and debris. I then proceeded with closing the uterine incision using 0 Vicryl suture in a running locked fashion. Second layer of imbricating 0 Monocryl was placed. Excellent hemostasis was noted after doing this. I then placed the uterus back in the pelvis and copiously irrigated the pelvis using normal saline. There was no active bleeding noted from any of my dissection planes. I placed Interceed antiadhesive over my low transverse incision and removed the Duncan ring retractor and then proceeded with closing the peritoneum and the rectus muscles in one layer using 3-0 Vicryl suture in running fashion. The fascia was then reapproximated using 0 Vicryl suture in running fashion. Subcutaneous tissue was reapproximated using 3-0 plain in interrupted subcutaneous stitch and skin reapproximated using lizzie. Lap and sponge count were correct at the end of the procedure. Instrument counts correct as well. 900 mg of clindamycin given preoperatively for infection prophylaxis due to a CEPHALOSPORIN allergy. Job ID: [id number] DocumentID: [id number] Dictated Date: 07/18/2020 23:18:12 Clothing Consultant Date: 07/19/2020 04:58:26 Dictated By: DO ELLIOT OLIVEROS
--- NOTE | 2020-07-19 11:19 | NUR ---
CM/SS visited with patient for social service consult regarding diabetic supplies. The patient is not diabetic per the nurse. Home: Patient lives at home with her significant other. Supplies: They state they have everything they need at home. She states they have 2 car seats, a crib, clothes, and diapers (cloth and disposable). Patient is breast feeding, no formula needs at this time. Supports: Patient reports that she has close family, friends, and neighbors. Services: The patient reports that she is working and does not receive Medicaid. They did not get approved for [facility]. CM/SS provided the patient resources on the [facility] Diaper stock and Healthy families. No further needs.
--- NOTE | 2020-07-19 14:00 | NUR ---
Pt drinking and urinating well. Has not been measuring urine.
--- NOTE | 2020-07-19 15:00 | NUR ---
Towels provided for pt and . Encouraged pt to shower later and remove dressing in shower.
--- NOTE | 2020-07-19 19:10 | NUR ---
REPORT RECEIVED AND CARES RESUMED BY THIS NURSE.
--- NOTE | 2020-07-19 20:05 | NUR ---
PT AMB TO REFRIGERATOR FOR SANDWICH. NO S/S OF DISTRESS OR DISCOMFORT NOTED.
--- NOTE | 2020-07-19 22:47 | NUR ---
PT UP AMB IN [place]. STATES IS BEGINNING TO GET UNCOMFORTABLE AND ASKS FOR PAIN MED. LORTAB 1 TAB GIVEN. PT DENIES ANY FURTHER NEEDS AT THIS TIME.
[2020-07-20] MEDS: IBUPROFEN 600 MG (MOTRIN) TAB PO SCH ×2 (04:57)
--- NOTE | 2020-07-20 08:29 | Postpartum Progress Note ---
Note Note Day # 2 Subjective: Patient is without complaints. Ambulating, voiding. Tolerating a regular diet without nausea or vomiting. Normal lochia. Pain is well controlled with oral pain medications. Objective: Physical Exam: General - Alert and oriented, no apparent distress Abdomen - Soft, appropriately tender to palpation, non-distended, fundus firm at umbilicus Extremities - no edema, negative Derrick's bilaterally Incision- c/d/i Assessment: POD 2 PLTCS Acute blood loss anemia BMI 55 Plan: Routine care. Encourage breast feeding. Encourage ambulation. Ferrous sulfate supplementation. Plan for discharge today Vitals - Labs Vital Signs - I&O Vital Signs Date Time Temp Pulse Resp B/P (MAP) Pulse Ox O2 Delivery O2 Flow Rate FiO2 07/19/20 20:15 36.7 103 18 146/92 (110) 98 Room Air 07/19/20 16:55 36.8 107 16 128/66 (86) 97 Room Air 07/19/20 09:25 36.8 111 16 131/76 (94) 98 Room Air I & O 07/20/20 07:00 Intake Total 600 ml Output Total 900 ml Balance -300 ml WILLIAM ODEN DO Jul 20, 2020 08:29
[2020-07-20] MEDS: DOCUSATE SODIUM 100 MG (COLACE) CAP PO SCH (08:31)
[2020-07-20] MEDS: ENOXAPARIN 60 MG/0.6 ML (LOVENOX) SYR SQ SCH (08:31)
[2020-07-20] MEDS ORDERED: ENOX60DI7 SQ (08:34)
[2020-07-20] MEDS ORDERED: ACHD5005 PO (08:34)
[2020-07-20] MEDS ORDERED: DCS100C PO (08:34)
[2020-07-20] MEDS ORDERED: IBUP-844 PO (08:34)
[2020-07-20 08:35] VITALS: BP 129/71
--- NOTE | 2020-07-20 08:35 | Discharge Inst-Women's Service ---
Discharge Inst-Women's Serv Depart Medication/Instructions New, Converted or Re-Newed RX: RX on Chart Final Diagnosis POD 2 PLTCS Problems Reviewed?: Yes Consults/Follow Up Additional Follow Up: Yes Orders/Referrals Dr. Muñoz/Vianey in 7-10 days and in 6 weeks Activity Activity: Activity as Tolerated Driving Instructions: No Driving for 1 Week NO SMOKING: NO SMOKING Nothing Inside Vagina: No Douching, No [place], No Tampons Diet Discharge Diet: No Restrictions Symptoms to Report to : Bleeding Excessive, Pain Increased, Fever Over 101 Degrees F, Vaginal Bleeding Increase, Questions/Concerns For Any Problems or Questions: Contact Your Physician Skin/Wound Care Infection Signs and Symptoms: Increased Redness, Foul Odor of Wound, Increased Drainage, Skin Itchy or Has a Rash, Increased Swelling, Temperature Above 101 F Operative Area Clean and Dry: Keep Incision Clean/Dry Stitches/Poulan/Dermabond: Care of Leta Bathing Instructions: WILLIAM Carey DO Jul 20, 2020 08:35
[2020-07-20] MEDS: HYDROcodone/APAP 5 MG/325 MG (LORTAB) TAB PO PRN (08:49)
[2020-07-20 11:19] VITALS: BP 129/71
--- NOTE | 2020-07-20 12:20 | NUR ---
Home instructions given and pt verbalized understanding. To exit via wheelchair - accompanied by Suha Ash RN and spouse.
== END 2020-07-20 12:20 | disposition home or self-care (01) | DRG 788 ==
LOC: LDRP 05:59
PROVIDERS: ADMIT Obstetrics & Gynecology; ATTEND Obstetrics & Gynecology
PROC: 10D00Z1 Extraction of Products of Conception, Low, Open Approach (ICD-10-PCS; principal; 2020-07-19)
DX: O33.9 Maternal care for disproportion, unspecified (principal); Z3A.39 39 weeks gestation of pregnancy; Z37.0 Single live birth
CPT/HCPCS: 36415; 82565; 85007; 85025; 85027; 86850; 86900; 86901; 87635

== ENCOUNTER 2020-07-25 11:46 | Emergency (ER) | payer BC ==
[~2020-07-25] VITALS: Ht 161 cm; Wt 179.5 kg
[~2020-07-25 11:46] MED LIST changes: +ACHD5005 PO; +DCS100C PO; +ENOX60DI7 SQ; +IBUP-844 PO
[2020-07-25 11:54] VITALS: BP 152/88
[2020-07-25] MEDS ORDERED: AMOX-358 PO (12:10)
--- NOTE | 2020-07-25 12:10 | ED Integumentary General ---
General Stated Complaint: LAST WEEK, OOZING BLOOD AND PUSS Source: patient Exam Limitations: no limitations History of Present Illness Date Seen by Provider: Jul 25, 2020 Time Seen by Provider: 12:05 Initial Comments To ER with reports of a N losing incision in the lower abdomen. She had a C- section on 07/18/20. She awakened this morning noticed a little bit of fluid had leaked out of this. She denies fevers chills or increased pain. She is breast- feeding. She is on Lovenox twice a day for history of antiphospholipid syndrome. No history of clots Timing/Duration: constant Severity: moderate Possible Cause: other (incision) Associated Symptoms: change in skin texture Allergies and Home Medications Allergies Coded Allergies: levofloxacin (Verified Allergy, Severe, JOINT PAIN/"POPPING", 06/22/19) sulfamethoxazole (Verified Allergy, Severe, FLUSHING, HOT, DIZZY, N/V, 06/22/19) trimethoprim (Verified Allergy, Severe, FLUSHING, HOT, DIZZY, N/V, 06/22/19) cefaclor (Verified Allergy, Mild, HIVES, 06/22/19) Home Medications Docusate Sodium 100 Mg Capsule, 100 MG PO BID PRN for CONSTIPATION-1ST LINE Prescribed by: WILLIAM ODEN on 07/20/20 0834 Enoxaparin Sodium 60 Mg/0.6 Ml Syringe, 60 MG SQ BID Prescribed by: WILLIAM ODEN on 07/20/20 0834 Hydrocodone/Acetaminophen 1 Each Tablet, 1-2 TAB PO Q6HR PRN for PAIN-MODERATE (5-7) Prescribed by: WILLIAM ODEN on 07/20/20 0834 Ibuprofen 600 Mg Tablet, 600 MG PO Q6HR Prescribed by: WILLIAM ODEN on 07/20/20 0834 Levothyroxine Sodium 25 Mcg Tablet, 25 MCG PO DAILY, (Reported) Vit W-Ca,Fe,FA(<1 mg) 1 Each Tablet, 1 EACH PO DAILY, (Reported) Spironolactone 100 Mg Tablet, 100 MG PO BID, (Reported) Patient Home Medication List Home Medication List Reviewed: Yes Review of Systems Review of Systems Constitutional: see HPI; No chills, No fever EENTM: see HPI Respiratory: no symptoms reported Cardiovascular: no symptoms reported Genitourinary: no symptoms reported Musculoskeletal: no symptoms reported Skin: no symptoms reported Psychiatric/Neurological: No Symptoms Reported Endocrine: No Symptoms Reported Hematologic/Lymphatic: No Symptoms Reported Past Cusgnzr-Sdttit-Kpheuy Hx Patient Social History 2nd Hand Smoke Exposure: No Recent Hopitalizations: No Immunizations Up To Date PED Vaccines UTD: Yes Seasonal Allergies Seasonal Allergies: Yes Past Medical History Surgeries: Yes (BMT, uteral septum removed, D&C May 2019) Adenoidectomy, Tonsillectomy Respiratory: No Currently Using CPAP: No Currently Using BIPAP: No Cardiac: No Neurological: Yes Headaches /Migraines Reproductive Disorders: Yes (MISCARRIAGES X 2--ANTIPHOSPHOLIPID SYNDROME) Female Reproductive Disorders: Menstrual Problems, Ovarian Cyst, Polycystic Ovarian Dis Sexually Transmitted Disease: No HIV/AIDS: No Genitourinary: No Gastrointestinal: No Gastroesophageal Reflux Musculoskeletal: No Endocrine: Yes (MORBID OBESITY) Hypothyroidsim HEENT: No Loss of Vision: Denies Hearing Impairment: Denies Cancer: No Psychosocial: No Anxiety Integumentary: No Blood Disorders: Yes (antiphospholipid syndrome) Adverse Reaction/Blood Tranf: No Family Medical History Asthma 19 MOTHER Congenital disease 19 MOTHER Diabetes mellitus 19 FATHER FH: Yvhon-Qnpwiukxj-Geckm syndrome 19 FATHER FH: factor V Leiden mutation G8 SISTER FH: liver cancer 19 FATHER FH: skin cancer 19 MOTHER Gout 19 MOTHER Hypertension 19 FATHER 19 MOTHER Osteoporotic fracture in parent Physical Exam Vital Signs Capillary Refill : General Appearance: WD/WN, no apparent distress, obese, other (alert and oriented no distress ambulatory to room 3. Very pleasant) HEENT: PERRL/EOMI, normal ENT inspection Neck: non-tender, full range of motion Cardiovascular: regular rate, rhythm Respiratory: no respiratory distress, no accessory muscle use Gastrointestinal: normal bowel sounds, non tender, soft, other (lower abdomen suprapubic Pfannenstiel incision is intact with lizzie. The very middle of the incision does have some serosanguineous discharge. I'm able to express this by pressing around the incision but there is no palpable induration or firmness. This was soaked up with some gauze. There is no erythema surrounding the wound. She does have some bruising to the lower abdomen, not unexpected given Lovenox injections.) Neurologic/Psychiatric: alert, normal mood/affect, oriented x 3 Skin: normal color, warm/dry Skin Problem Character: other (lower abdomen) Departure Communication (Admissions) She states that she has taken amoxicillin in the past without difficulty. Impression Primary Impression: Postoperative seroma Disposition: 01 HOME, SELF-CARE Condition: Stable Departure-Patient Inst. Decision time for Depature: 12:08 Referrals: [facility]/KATIE (PCP) Primary Care Physician MAGEN BERNSTEIN (Family) Primary Care Physician Patient Instructions: NO INSTRUCTIONS GIVEN Add. Discharge Instructions: 1. Change the gauze as needed, expect this to continue to use for the next few days. Return to ER for fevers chills or worsening pain. Take antibiotics as directed. We did get a culture of this so if this shows evidence of infection that is not amenable to the antibiotic that we prescribed today then we will call you with another antibiotic. We should have these results in about 48 h ours. Scripts Amoxicillin/Potassium Clav (Augmentin 875-125 Tablet) 1 Each Tablet 1 EACH PO BID, #14 TAB 0 Refills Prov: JARRELL CARDONA APRN 07/25/20 JARRELL CARDONA APRN Jul 25, 2020 12:10
== END 2020-07-25 12:26 | disposition home or self-care (01) ==
LOC: EDUNIT# 11:46 → ER 11:47
DX: K91.873 Postprocedural seroma of a digestive system organ or structure following other procedure (principal); E03.9 Hypothyroidism, unspecified; E66.01 Morbid (severe) obesity due to excess calories; Z88.1 Allergy status to other antibiotic agents; Z88.2 Allergy status to sulfonamides; Z82.49 Family history of ischemic heart disease and other diseases of the circulatory system; Z83.3 Family history of diabetes mellitus; Z80.0 Family history of malignant neoplasm of digestive organs; Z80.8 Family history of malignant neoplasm of other organs or systems; Z79.890 Hormone replacement therapy; Z20.828 Contact with and (suspected) exposure to other viral communicable diseases; Z79.01 Long term (current) use of anticoagulants
CPT/HCPCS: 87070; 87077; 87186; 87205; 99282

== ENCOUNTER → 2020-08-08 | Outpatient (CLI) | payer BC ==
[~2020-08-08] MED LIST changes: +AMOX-358 PO
== END ==
LOC: WOUNDCARE 12:52
PROVIDERS: ATTEND Surgery
DX: L98.492 Non-pressure chronic ulcer of skin of other sites with fat layer exposed (principal); S31.109A Unspecified open wound of abdominal wall, unspecified quadrant without penetration into peritoneal cavity, initial encounter; T81.31XA Disruption of external operation (surgical) wound, not elsewhere classified, initial encounter; E66.01 Morbid (severe) obesity due to excess calories; Z68.43 Body mass index [BMI] 50.0-59.9, adult
CPT/HCPCS: 11042; G0463

== ENCOUNTER → 2020-08-16 | Outpatient (CLI) | payer BC | LOC: WOUNDCARE 12:36 | PROVIDERS: ATTEND Surgery | DX: I96 Gangrene, not elsewhere classified (principal); S31.109A Unspecified open wound of abdominal wall, unspecified quadrant without penetration into peritoneal cavity, initial encounter; T81.31XA Disruption of external operation (surgical) wound, not elsewhere classified, initial encounter; L98.492 Non-pressure chronic ulcer of skin of other sites with fat layer exposed; E66.01 Morbid (severe) obesity due to excess calories | CPT/HCPCS: 11042; 97605; A6234; G0463 ==

== ENCOUNTER → 2020-08-20 | Outpatient (CLI) | payer BC | LOC: WOUNDCARE 12:54 | PROVIDERS: ATTEND Surgery | DX: L98.492 Non-pressure chronic ulcer of skin of other sites with fat layer exposed (principal); S31.109A Unspecified open wound of abdominal wall, unspecified quadrant without penetration into peritoneal cavity, initial encounter; T81.31XA Disruption of external operation (surgical) wound, not elsewhere classified, initial encounter; E66.01 Morbid (severe) obesity due to excess calories; I96 Gangrene, not elsewhere classified; Z68.43 Body mass index [BMI] 50.0-59.9, adult | CPT/HCPCS: 99213 ==

== ENCOUNTER → 2020-08-29 | Outpatient (CLI) | payer BC | LOC: WOUNDCARE 15:33 | PROVIDERS: ATTEND Surgery | DX: I96 Gangrene, not elsewhere classified (principal); L98.492 Non-pressure chronic ulcer of skin of other sites with fat layer exposed; S31.109A Unspecified open wound of abdominal wall, unspecified quadrant without penetration into peritoneal cavity, initial encounter; T81.31XA Disruption of external operation (surgical) wound, not elsewhere classified, initial encounter; E66.01 Morbid (severe) obesity due to excess calories; Z68.43 Body mass index [BMI] 50.0-59.9, adult | CPT/HCPCS: 11042; G0463 ==

== ENCOUNTER → 2020-09-03 | Outpatient (CLI) | payer BC | LOC: WOUNDCARE 14:58 | PROVIDERS: ATTEND Surgery | DX: L98.492 Non-pressure chronic ulcer of skin of other sites with fat layer exposed (principal); S31.109A Unspecified open wound of abdominal wall, unspecified quadrant without penetration into peritoneal cavity, initial encounter; T81.31XA Disruption of external operation (surgical) wound, not elsewhere classified, initial encounter; E66.01 Morbid (severe) obesity due to excess calories; I96 Gangrene, not elsewhere classified | CPT/HCPCS: 11042; G0463 ==

== ENCOUNTER → 2020-09-12 | Outpatient (CLI) | payer BC | LOC: WOUNDCARE 14:01 | PROVIDERS: ATTEND Orthopaedic Surgery Hand Surgery | DX: I96 Gangrene, not elsewhere classified (principal); L98.492 Non-pressure chronic ulcer of skin of other sites with fat layer exposed; S31.109A Unspecified open wound of abdominal wall, unspecified quadrant without penetration into peritoneal cavity, initial encounter; T81.31XA Disruption of external operation (surgical) wound, not elsewhere classified, initial encounter; E66.01 Morbid (severe) obesity due to excess calories; Z68.43 Body mass index [BMI] 50.0-59.9, adult | CPT/HCPCS: 11042; G0463 ==

== ENCOUNTER → 2020-09-24 | Outpatient (CLI) | payer BC | LOC: WOUNDCARE 14:43 | PROVIDERS: ATTEND Orthopaedic Surgery Hand Surgery | DX: L98.492 Non-pressure chronic ulcer of skin of other sites with fat layer exposed (principal); T81.31XA Disruption of external operation (surgical) wound, not elsewhere classified, initial encounter; E66.01 Morbid (severe) obesity due to excess calories; S31.109A Unspecified open wound of abdominal wall, unspecified quadrant without penetration into peritoneal cavity, initial encounter | CPT/HCPCS: 97605; G0463 ==

== ENCOUNTER → 2020-09-27 | Outpatient (CLI) | payer BC | LOC: WOUNDCARE 15:31 | PROVIDERS: ATTEND Surgery | DX: S31.109A Unspecified open wound of abdominal wall, unspecified quadrant without penetration into peritoneal cavity, initial encounter (principal) | CPT/HCPCS: 97605; A6234; G0463 ==

== ENCOUNTER → 2020-09-28 | Outpatient (CLI) | payer BC | LOC: WOUNDCARE 12:28 | PROVIDERS: ATTEND Surgery | DX: S31.109A Unspecified open wound of abdominal wall, unspecified quadrant without penetration into peritoneal cavity, initial encounter (principal) | CPT/HCPCS: 97605; G0463 ==

== ENCOUNTER → 2020-10-01 | Outpatient (CLI) | payer BC | LOC: WOUNDCARE 14:57 | PROVIDERS: ATTEND Surgery | DX: L98.492 Non-pressure chronic ulcer of skin of other sites with fat layer exposed (principal); S31.109A Unspecified open wound of abdominal wall, unspecified quadrant without penetration into peritoneal cavity, initial encounter; T81.31XA Disruption of external operation (surgical) wound, not elsewhere classified, initial encounter; E66.01 Morbid (severe) obesity due to excess calories | CPT/HCPCS: 99212 ==

== ENCOUNTER → 2020-10-08 | Outpatient (CLI) | payer BC | LOC: WOUNDCARE 14:36 | PROVIDERS: ATTEND Surgery | DX: L98.492 Non-pressure chronic ulcer of skin of other sites with fat layer exposed (principal); S31.109A Unspecified open wound of abdominal wall, unspecified quadrant without penetration into peritoneal cavity, initial encounter; T81.31XA Disruption of external operation (surgical) wound, not elsewhere classified, initial encounter; E66.01 Morbid (severe) obesity due to excess calories; I96 Gangrene, not elsewhere classified; Z68.43 Body mass index [BMI] 50.0-59.9, adult | CPT/HCPCS: 11042; G0463 ==

== ENCOUNTER → 2020-10-22 | Outpatient (CLI) | payer BC | LOC: WOUNDCARE 14:54 | PROVIDERS: ATTEND Surgery | DX: L98.492 Non-pressure chronic ulcer of skin of other sites with fat layer exposed (principal); S31.109A Unspecified open wound of abdominal wall, unspecified quadrant without penetration into peritoneal cavity, initial encounter; T81.31XA Disruption of external operation (surgical) wound, not elsewhere classified, initial encounter; I96 Gangrene, not elsewhere classified; E66.01 Morbid (severe) obesity due to excess calories; Z68.43 Body mass index [BMI] 50.0-59.9, adult | CPT/HCPCS: 11042; G0463 ==

== ENCOUNTER → 2020-10-29 | Outpatient (CLI) | payer BC | LOC: WOUNDCARE 14:58 | PROVIDERS: ATTEND Surgery | DX: L98.492 Non-pressure chronic ulcer of skin of other sites with fat layer exposed (principal); S31.109A Unspecified open wound of abdominal wall, unspecified quadrant without penetration into peritoneal cavity, initial encounter; T81.31XA Disruption of external operation (surgical) wound, not elsewhere classified, initial encounter; E66.01 Morbid (severe) obesity due to excess calories; I96 Gangrene, not elsewhere classified; X58.XXXA Exposure to other specified factors, initial encounter | CPT/HCPCS: 11042; G0463 ==

== ENCOUNTER → 2020-11-05 | Outpatient (CLI) | payer BC | LOC: WOUNDCARE 15:02 | PROVIDERS: ATTEND Surgery | DX: L98.492 Non-pressure chronic ulcer of skin of other sites with fat layer exposed (principal); S31.102A Unspecified open wound of abdominal wall, epigastric region without penetration into peritoneal cavity, initial encounter; T81.31XA Disruption of external operation (surgical) wound, not elsewhere classified, initial encounter; E66.01 Morbid (severe) obesity due to excess calories; I96 Gangrene, not elsewhere classified | CPT/HCPCS: 11042; G0463 ==

== ENCOUNTER → 2020-11-12 | Outpatient (CLI) | payer BC | LOC: WOUNDCARE 15:03 | PROVIDERS: ATTEND Surgery | DX: L98.492 Non-pressure chronic ulcer of skin of other sites with fat layer exposed (principal); I96 Gangrene, not elsewhere classified; S31.109A Unspecified open wound of abdominal wall, unspecified quadrant without penetration into peritoneal cavity, initial encounter; T81.31XA Disruption of external operation (surgical) wound, not elsewhere classified, initial encounter; E66.01 Morbid (severe) obesity due to excess calories; Z68.43 Body mass index [BMI] 50.0-59.9, adult | CPT/HCPCS: 11042; G0463 ==

== ENCOUNTER → 2020-11-19 | Outpatient (CLI) | payer BC | LOC: WOUNDCARE 14:49 | PROVIDERS: ATTEND Surgery | DX: L98.492 Non-pressure chronic ulcer of skin of other sites with fat layer exposed (principal); S31.102A Unspecified open wound of abdominal wall, epigastric region without penetration into peritoneal cavity, initial encounter; T81.31XA Disruption of external operation (surgical) wound, not elsewhere classified, initial encounter; E66.01 Morbid (severe) obesity due to excess calories; I96 Gangrene, not elsewhere classified | CPT/HCPCS: 11042; G0463 ==

== ENCOUNTER → 2020-11-26 | Outpatient (CLI) | payer BC | LOC: WOUNDCARE 14:54 | PROVIDERS: ATTEND Surgery | DX: L98.492 Non-pressure chronic ulcer of skin of other sites with fat layer exposed (principal); S31.109A Unspecified open wound of abdominal wall, unspecified quadrant without penetration into peritoneal cavity, initial encounter; T81.31XA Disruption of external operation (surgical) wound, not elsewhere classified, initial encounter; E66.01 Morbid (severe) obesity due to excess calories; I96 Gangrene, not elsewhere classified | CPT/HCPCS: 11042; G0463 ==

== ENCOUNTER → 2020-12-03 | Outpatient (CLI) | payer BC | LOC: WOUNDCARE 15:00 | PROVIDERS: ATTEND Surgery | DX: L98.492 Non-pressure chronic ulcer of skin of other sites with fat layer exposed (principal); S31.109A Unspecified open wound of abdominal wall, unspecified quadrant without penetration into peritoneal cavity, initial encounter; T81.31XA Disruption of external operation (surgical) wound, not elsewhere classified, initial encounter; E66.01 Morbid (severe) obesity due to excess calories; I96 Gangrene, not elsewhere classified; Z68.43 Body mass index [BMI] 50.0-59.9, adult | CPT/HCPCS: 11042; G0463 ==

== ENCOUNTER → 2020-12-10 | Outpatient (CLI) | payer BC | LOC: WOUNDCARE 14:51 | PROVIDERS: ATTEND Surgery | DX: I96 Gangrene, not elsewhere classified (principal); L98.492 Non-pressure chronic ulcer of skin of other sites with fat layer exposed; S31.109A Unspecified open wound of abdominal wall, unspecified quadrant without penetration into peritoneal cavity, initial encounter; T81.31XA Disruption of external operation (surgical) wound, not elsewhere classified, initial encounter; E66.01 Morbid (severe) obesity due to excess calories | CPT/HCPCS: 11042; G0463 ==

== ENCOUNTER → 2020-12-17 | Outpatient (CLI) | payer BC | LOC: WOUNDCARE 15:00 | PROVIDERS: ATTEND Surgery | DX: L98.492 Non-pressure chronic ulcer of skin of other sites with fat layer exposed (principal); S31.109A Unspecified open wound of abdominal wall, unspecified quadrant without penetration into peritoneal cavity, initial encounter; I96 Gangrene, not elsewhere classified; T81.31XA Disruption of external operation (surgical) wound, not elsewhere classified, initial encounter; E66.01 Morbid (severe) obesity due to excess calories; Z68.43 Body mass index [BMI] 50.0-59.9, adult | CPT/HCPCS: 11042; G0463 ==

== ENCOUNTER → 2020-12-24 | Outpatient (CLI) | payer BC | LOC: WOUNDCARE 14:55 | PROVIDERS: ATTEND Surgery | DX: L92.8 Other granulomatous disorders of the skin and subcutaneous tissue (principal); L98.492 Non-pressure chronic ulcer of skin of other sites with fat layer exposed; S31.109A Unspecified open wound of abdominal wall, unspecified quadrant without penetration into peritoneal cavity, initial encounter; T81.31XA Disruption of external operation (surgical) wound, not elsewhere classified, initial encounter; E66.01 Morbid (severe) obesity due to excess calories; I96 Gangrene, not elsewhere classified | CPT/HCPCS: 17250; G0463 ==

== ENCOUNTER → 2020-12-31 | Outpatient (CLI) | payer BC | LOC: WOUNDCARE 14:19 | PROVIDERS: ATTEND Surgery | DX: I96 Gangrene, not elsewhere classified (principal); L98.492 Non-pressure chronic ulcer of skin of other sites with fat layer exposed; L92.8 Other granulomatous disorders of the skin and subcutaneous tissue; S31.109A Unspecified open wound of abdominal wall, unspecified quadrant without penetration into peritoneal cavity, initial encounter; T81.31XA Disruption of external operation (surgical) wound, not elsewhere classified, initial encounter; E66.01 Morbid (severe) obesity due to excess calories; Z68.43 Body mass index [BMI] 50.0-59.9, adult | CPT/HCPCS: 17250; G0463 ==

== ENCOUNTER → 2021-01-14 | Outpatient (CLI) | payer BC | LOC: WOUNDCARE 15:06 | PROVIDERS: ATTEND Surgery | DX: L92.8 Other granulomatous disorders of the skin and subcutaneous tissue (principal); I96 Gangrene, not elsewhere classified; L98.492 Non-pressure chronic ulcer of skin of other sites with fat layer exposed; S31.109A Unspecified open wound of abdominal wall, unspecified quadrant without penetration into peritoneal cavity, initial encounter; T81.31XA Disruption of external operation (surgical) wound, not elsewhere classified, initial encounter; E66.01 Morbid (severe) obesity due to excess calories; Z68.43 Body mass index [BMI] 50.0-59.9, adult | CPT/HCPCS: 17250 ==

== ENCOUNTER → 2021-02-05 | Outpatient (CLI) | payer BC | LOC: WOUNDCARE 15:33 | PROVIDERS: ATTEND Surgery | DX: L92.8 Other granulomatous disorders of the skin and subcutaneous tissue (principal); I96 Gangrene, not elsewhere classified; L98.492 Non-pressure chronic ulcer of skin of other sites with fat layer exposed; S31.109A Unspecified open wound of abdominal wall, unspecified quadrant without penetration into peritoneal cavity, initial encounter; T81.31XA Disruption of external operation (surgical) wound, not elsewhere classified, initial encounter; E66.01 Morbid (severe) obesity due to excess calories; Z68.43 Body mass index [BMI] 50.0-59.9, adult | CPT/HCPCS: 17250; G0463 ==

== ENCOUNTER → 2021-02-11 | Outpatient (CLI) | payer BC | LOC: WOUNDCARE 15:00 | PROVIDERS: ATTEND Surgery | DX: L98.492 Non-pressure chronic ulcer of skin of other sites with fat layer exposed (principal); S31.109A Unspecified open wound of abdominal wall, unspecified quadrant without penetration into peritoneal cavity, initial encounter; T81.31XA Disruption of external operation (surgical) wound, not elsewhere classified, initial encounter; E66.01 Morbid (severe) obesity due to excess calories; Z68.43 Body mass index [BMI] 50.0-59.9, adult | CPT/HCPCS: 99212 ==

== ENCOUNTER 2023-01-28 16:42 | Observation (INO) | payer SELFPAY ==
[2023-01-27 21:45] VITALS: BP 140/84
[~2023-01-28] VITALS: Ht 165.1 cm; Wt 205.0 kg
[~2023-01-28 16:42] MED LIST changes: -DCS100C PO; +DOCU-239 PO
--- NOTE | 2023-01-28 16:50 | ED Cough/URI ---
General Chief Complaint: Respiratory Problems Stated Complaint: SOA,EYES LEAKING MUCUS History of Present Illness Date Seen by Provider: January 28, 2023 Time Seen by Provider: 16:50 Initial Comments 32-year-old female presents with cough, congestion, shortness of breath this been getting worse for the last couple to 3 days. She reports that she is maybe had a subjective fever. No nausea vomiting diarrhea no rash. She does have a history of hypothyroidism and has not been on her medications for at least a month. Patient was seen back in October outside provider and diagnosed with pneumonia and started on Augmentin and azithromycin. Patient went to urgent care where she was found to be hypoxic with oxygen around 86-87. She was placed on 2 L nasal cannula and oxygen came up to 93% and sent to the ER via EMS. Allergies and Home Medications Allergies Coded Allergies: levofloxacin (Verified Allergy, Severe, JOINT PAIN/"POPPING", 06/22/19) sulfamethoxazole (Verified Allergy, Severe, FLUSHING, HOT, DIZZY, N/V, 06/22/19) trimethoprim (Verified Allergy, Severe, FLUSHING, HOT, DIZZY, N/V, 06/22/19) cefaclor (Verified Allergy, Mild, HIVES, 06/22/19) Patient Home Medication List Home Medication List Reviewed: Yes Amoxicillin/Potassium Clav (Augmentin 875-125 Tablet) 1 Each Tablet, 1 EACH PO BID Prescribed by: JARRELL CARDONA on 07/25/20 1210 Docusate Sodium (Dok) 100 Mg Capsule, 100 MG PO BID PRN for CONSTIPATION-1ST LINE Prescribed by: WILLIAM ODEN on 07/20/20833 Enoxaparin Sodium (Enoxaparin Sodium) 60 Mg/0.6 Ml Syringe, 60 MG SQ BID Prescribed by: WILLIAM ODEN on 07/20/20833 Hydrocodone/Acetaminophen (Hydrocodone-Acetamin 5-325 mg) 1 Each Tablet, 1-2 TAB PO Q6HR PRN for PAIN-MODERATE (5-7) Prescribed by: WILLIAM ODEN on 07/20/20833 Ibuprofen (Ibu) 600 Mg Tablet, 600 MG PO Q6HR Prescribed by: WILLIAM ODEN on 07/20/20833 Levothyroxine Sodium (Levothyroxine Sodium) 25 Mcg Tablet, 25 MCG PO DAILY, (Reported) Entered as Reported by: CHEYENNE SUAZO on 06/22/191314 Vit W-Ca,Fe,FA(<1 mg) ( Vitamins) 1 Each Tablet, 1 EACH PO DAILY, (Reported) Entered as Reported by: CHEYENNE SUAZO on 06/22/191314 Spironolactone (Spironolactone) 100 Mg Tablet, 100 MG PO BID, (Reported) Entered as Reported by: CHEYENNE SUAZO on 06/22/191314 Review of Systems Review of Systems Constitutional: see HPI EENTM: nose congestion Respiratory: cough, short of breath Genitourinary: no symptoms reported Musculoskeletal: no symptoms reported Skin: no symptoms reported Psychiatric/Neurological: No Symptoms Reported Hematologic/Lymphatic: No Symptoms Reported Past Wfmsbsi-Epxkpa-Cjvfjk Hx Immunizations Up To Date Tetanus Booster (TDap): Unknown PED Vaccines UTD: Yes Seasonal Allergies Seasonal Allergies: Yes Past Medical History Surgeries: Yes (BMT, uteral septum removed, D&C May 2019) Adenoidectomy, Tonsillectomy Respiratory: No Currently Using CPAP: No Currently Using BIPAP: No Cardiac: No Neurological: Yes Headaches /Migraines Reproductive Disorders: Yes (MISCARRIAGES X 2--ANTIPHOSPHOLIPID SYNDROME) Female Reproductive Disorders: Menstrual Problems, Ovarian Cyst, Polycystic Ovarian Dis Sexually Transmitted Disease: No HIV/AIDS: No Genitourinary: No Gastrointestinal: No Gastroesophageal Reflux Musculoskeletal: No Endocrine: Yes (MORBID OBESITY) Hypothyroidsim HEENT: No Loss of Vision: Denies Hearing Impairment: Denies Cancer: No Psychosocial: No Anxiety Integumentary: No Blood Disorders: Yes (antiphospholipid syndrome) Adverse Reaction/Blood Tranf: No Family Medical History Asthma 19 MOTHER Congenital disease 19 MOTHER Diabetes mellitus 19 FATHER FH: Afosg-Plrmfzguc-Qhwaj syndrome 19 FATHER FH: factor V Leiden mutation G8 SISTER FH: liver cancer 19 FATHER FH: skin cancer 19 MOTHER Gout 19 MOTHER Hypertension 19 FATHER 19 MOTHER Osteoporotic fracture in parent Physical Exam Vital Signs - First Documented 01/27/23 21:45 Temp 37.7 Pulse 120 Resp 20 B/P (MAP) 140/84 (102) Pulse Ox 93 O2 Delivery Nasal Cannula O2 Flow Rate 2.50 Capillary Refill : Height: '" Weight: lbs. oz. kg; 69.00 BMI Method: General Appearance: no apparent distress, obese (Morbid) Respiratory: decreased breath sounds (Diffuse, likely due to body habitus) Cardiovascular: tachycardia Gastrointestinal: non tender, soft Neurologic/Psychiatric: alert, normal mood/affect, oriented x 3 Skin: normal color, warm/dry Focused Exam Lactate Level 01/28/23 17:20: Lactic Acid Level 1.88 Lactic Acid Level Laboratory Tests Test 01/28/23 17:20 Lactic Acid Level 1.88 MMOL/L (0.50-2.00) Progress/Results/Core Measures Suspected Sepsis SIRS Temperature: Pulse: Respiratory Rate: Laboratory Tests 01/28/23 16:45: White Blood Count 9.3 Blood Pressure / Mean: 01/28/23 17:20: Lactic Acid Level 1.88 Laboratory Tests 01/28/23 16:45: Platelet Count 285 01/28/23 17:20: Creatinine 0.55L, Total Bilirubin 0.7 Results/Orders Lab Results Laboratory Tests Test 01/28/23 16:45 01/28/23 17:00 01/28/23 17:20 01/28/23 18:10 Range/Units White Blood Count 9.3 4.3-11.0 10^3/uL Red Blood Count 4.80 3.80-5.11 10^6/uL Hemoglobin 14.1 11.5-16.0 g/dL Hematocrit 44 35-52 % Mean Corpuscular Volume 91 80-99 fL Mean Corpuscular Hemoglobin 29 25-34 pg Mean Corpuscular Hemoglobin Concent 32 32-36 g/dL Red Cell Distribution Width 15.2 H 10.0-14.5 % Platelet Count 285 130-400 10^3/uL Mean Platelet Volume 10.7 9.0-12.2 fL Immature Granulocyte % (Auto) 1 % Neutrophils (%) (Auto) 68 42-75 % Lymphocytes (%) (Auto) 15 12-44 % Monocytes (%) (Auto) 15 H 0-12 % Eosinophils (%) (Auto) 1 0-10 % Basophils (%) (Auto) 1 0-10 % Neutrophils # (Auto) 6.3 1.8-7.8 10^3/uL Lymphocytes # (Auto) 1.4 1.0-4.0 10^3/uL Monocytes # (Auto) 1.4 H 0.0-1.0 10^3/uL Eosinophils # (Auto) 0.1 0.0-0.3 10^3/uL Basophils # (Auto) 0.1 0.0-0.1 10^3/uL Immature Granulocyte # (Auto) 0.1 0.0-0.1 10^3/uL Influenza Type A (RT-PCR) Not Detected Not Detecte Influenza Type B (RT-PCR) Not Detected Not Detecte SARS-CoV-2 RNA (RT-PCR) Not Detected Not Detecte D-Dimer 0.47 0.00-0.49 UG/ML Sodium Level 137 135-145 MMOL/L Potassium Level 3.9 3.6-5.0 MMOL/L Chloride Level 98 98-107 MMOL/L Carbon Dioxide Level 26 21-32 MMOL/L Anion Gap 13 5-14 MMOL/L Blood Urea Nitrogen 5 L 7-18 MG/DL Creatinine 0.55 L 0.60-1.30 MG/DL Estimat Glomerular Filtration Rate 125 BUN/Creatinine Ratio 9 Glucose Level 170 H 70-105 MG/DL Lactic Acid Level 1.88 0.50-2.00 MMOL/L Calcium Level 9.3 8.5-10.1 MG/DL Corrected Calcium 9.5 8.5-10.1 MG/DL Magnesium Level 1.9 1.6-2.4 MG/DL Total Bilirubin 0.7 0.1-1.0 MG/DL Aspartate Amino Transf (AST/SGOT) 18 5-34 U/L Alanine Aminotransferase (ALT/SGPT) 20 0-55 U/L Alkaline Phosphatase 89 40-136 U/L Troponin I < 0.30 <0.30 NG/ML C-Reactive Protein 18.24 H <0.50 MG/DL Pro-B-Type Natriuretic Peptide 46.7 <125.0 PG/ML Total Protein 8.0 6.4-8.2 GM/DL Albumin 3.7 3.2-4.5 GM/DL Blood Gas Puncture Site LW Blood Gas Patient Temperature 36.1 Arterial Blood pH 7.44 H 7.37-7.43 Arterial Blood Partial Pressure CO2 46 H 35-45 MMHG Arterial Blood Partial Pressure O2 62 L 79-93 MMHG Arterial Blood HCO3 31 H 23-27 MMOL/L Arterial Blood Total CO2 32.6 H 21.0-31.0 MMOL/L Arterial Blood Oxygen Saturation 92 L 94-100 % Arterial Blood Base Excess 6.1 H -2.5-2.5 MMOL/L Alex Test OK Blood Gas Ventilator Setting NO Blood Gas Inspired Oxygen 2 L My Orders Orders - PETERS,SOPHY L DO Cbc With Automated Diff (01/28/23 16:52) Comprehensive Metabolic Panel (01/28/23 16:52) Magnesium (01/28/23 16:52) Thyroid Analyzer (01/28/23 16:52) Influenza A And B By Pcr (01/28/23 16:52) Crp Fs (01/28/23 16:52) Covid 19 Inhouse Test (01/28/23 16:52) Chest Pa/Lat (2 View) (01/28/23 16:52) Fibrin Degradation Products (01/28/23 16:52) Troponin I Fs (01/28/23 16:52) Ns Iv 1000 Ml (Sodium Chloride 0.9%) (01/28/23 16:57) Lactic Acid Analyzer (01/28/23 16:57) Arterial Blood Gas (01/28/23 17:55) Probnp Fs (01/28/23 17:55) Ed Admission (Communication) (01/28/23 18:58) Vital Signs/I&O 01/27/23 01/28/23 21:45 16:45 Temp 37.7 Pulse 120 136 Resp 20 20 B/P (MAP) 140/84 (102) 171/75 (107) Pulse Ox 93 92 O2 Delivery Nasal Cannula Nasal Cannula O2 Flow Rate 2.50 2.00 Capillary Refill : Progress Note : Progress Note Patient's diagnostic studies were ordered reviewed and interpreted by me. Patient had no significant findings on her labs. She was requiring oxygen and remained tachycardic. She had a negative D-dimer. Patient x-ray shows some que stionable may may be mild pulmonary congestion and questionable pneumonitis but no real significant pneumonias or other findings. Patient is extremely obese and I suspect that this is contributing to her hypoxia and tachycardia. Patient to be admitted to [facility] Dr. Lambert for further evaluation to determine. I did discuss patient with Dr. Lambert who requested an ABG and a BMP. BMP was negative with ABG showing some mild metabolic alkalosis but no significant findings. Patient was transferred via EMS in stable condition. ECG Initial ECG Impression Date: January 28, 2023 Initial ECG Impression Time: 16:50 Initial ECG Rate: 131 Initial ECG Rhythm: S.Tach Initial ECG Impression: Nonspecific Changes Comment no acute st changes or elevation Diagnostic Imaging Diagonstic Imaging: Xray Plain Films/CT/US/NM/MRI: chest Comments Date of Exam:01/28/23 CHEST PA/LAT (2 VIEW) INDICATION: Cough, dyspnea and hypoxia. TECHNIQUE: PA and lateral views of the chest are obtained. COMPARISON: There is no previous study available at this time for comparison. FINDINGS: Overall heart size is within normal limits. Pulmonary vascularity is prominent and there are patchy bilateral predominantly perihilar densities in both lungs without lobar consolidation, pneumothorax or pleural fluid. IMPRESSION: Patchy bilateral predominantly central densities likely represent edema and pneumonitis. Atypical pneumonia is not excluded. Reviewed: Reviewed by Me, Reviewed/Discussed Departure Impression Primary Impression: Shortness of breath Additional Impressions: Hypoxia Tachycardia Disposition: 30 STILL A PATIENT Condition: Stable Admissions Decision to Admit Reason: Admit from ER (General) Decision to Admit/Date: January 28, 2023 Time/Decision to Admit Time: 18:00 Departure-Patient Inst. Referrals: [facility]/KATIE (PCP) Primary Care Physician MAGEN BERNSTEIN (Family) Primary Care Physician SOPHY PETERS DO January 28, 2023 16:50
[2023-01-28] MEDS ORDERED: NS IV 1000 ML 1,000 ML IV STA (16:57)
[2023-01-28 17:03] LABS: BASOPHILS # (AUTO) 0.1 10^3/uL (0.0-0.1); BASOPHILS % (AUTO) 1 % (0-10); EOSINOPHILS # (AUTO) 0.1 10^3/uL (0.0-0.3); EOSINOPHILS % (AUTO) 1 % (0-10); HEMATOCRIT 44 % (35-52); HEMOGLOBIN 14.1 g/dL (11.5-16.0); LYMPHOCYTES # (AUTO) 1.4 10^3/uL (1.0-4.0); LYMPHOCYTES % (AUTO) 15 % (12-44); MEAN CORPUSCULAR HEMOGLOBIN 29 pg (25-34); MEAN CORPUSCULAR HGB CONC 32 g/dL (32-36); MEAN CORPUSCULAR VOLUME 91 fL (80-99); MEAN PLATELET VOLUME 10.7 fL (9.0-12.2); MONOCYTES # (AUTO) 1.4 10^3/uL (0.0-1.0); MONOCYTES % (AUTO) 15 % (0-12); NEUTROPHILS # (AUTO) 6.3 10^3/uL (1.8-7.8); NEUTROPHILS % (AUTO) 68 % (42-75); PLATELET COUNT 285 10^3/uL (130-400); WHITE BLOOD COUNT 9.3 10^3/uL (4.3-11.0)
--- NOTE | 2023-01-28 17:29 | Diagnostic Imaging Report ---
INDICATION: Cough, dyspnea and hypoxia. TECHNIQUE: PA and lateral views of the chest are obtained. COMPARISON: There is no previous study available at this time for comparison. FINDINGS: Overall heart size is within normal limits. Pulmonary vascularity is prominent and there are patchy bilateral predominantly perihilar densities in both lungs without lobar consolidation, pneumothorax or pleural fluid. IMPRESSION: Patchy bilateral predominantly central densities likely represent edema and pneumonitis. Atypical pneumonia is not excluded. Dictated by: Dictated on workstation # [id number]
[2023-01-28 17:44] LABS: ALANINE AMINOTRANSFERASE 20 U/L (0-55); ALKALINE PHOSPHATASE 89 U/L (40-136); BILIRUBIN,TOTAL 0.7 MG/DL (0.1-1.0); BUN/CREATININE RATIO 9; CALCIUM 9.3 MG/DL (8.5-10.1); CARBON DIOXIDE 26 MMOL/L (21-32); CHLORIDE 98 MMOL/L (98-107); CREATININE SERUM 0.55 MG/DL (0.60-1.30); GFR ESTIMATED 125; GLUCOSE 170 MG/DL (70-105); MAGNESIUM 1.9 MG/DL (1.6-2.4); POTASSIUM 3.9 MMOL/L (3.6-5.0); SODIUM 137 MMOL/L (135-145)
[2023-01-28 17:45] LABS: ALBUMIN 3.7 GM/DL (3.2-4.5)
[2023-01-28 18:30] LABS: ABG BASE EXCESS 6.1 MMOL/L (-2.5-2.5); ABG OXYGEN SATURATION 92 % (94-100); ABG PCO2 46 MMHG (35-45); ABG PH 7.44 (7.37-7.43); ABG PO2 62 MMHG (79-93); ABG TCO2 32.6 MMOL/L (21.0-31.0); ALLENS TEST OK; INSPIRED O2 2 L; PATIENT TEMP 36.1; VENTILATOR NO
[2023-01-28] MEDS ORDERED: MELATONIN 3 MG TABLET PO PRN (20:45)
[2023-01-28] MEDS ORDERED: cloNIDine 0.1 MG (CATAPRES) TAB PO PRN (20:45)
[2023-01-28] MEDS ORDERED: polyethylene glycoL POWDER 17 GM (MIRALAX) PACK PO PRN (20:45)
[2023-01-28] MEDS ORDERED: HYDROmorphone 2 MG/ML VIAL (DILAUDID) IV PRN (20:45)
[2023-01-28] MEDS ORDERED: ONDANSETRON 4 MG (ZOFRAN) ORAL DISSOLVE TAB PO PRN (20:45)
[2023-01-28] MEDS ORDERED: diphenhydrAMINE 25 MG TAB (BENADRYL) PO PRN (20:45)
[2023-01-28] MEDS ORDERED: diphenhydrAMINE 50 MG/ML INJ (BENADRYL) IVP PRN (20:45)
[2023-01-28] MEDS ORDERED: BISACODYL 10 MG SUPP (DULCOLAX) PR PRN (20:45)
[2023-01-28] MEDS ORDERED: ONDANSETRON 4 MG/2 ML (SDV) Z0FRAN IV PRN (20:45)
[2023-01-28] MEDS ORDERED: ALPRAZolam 0.25 MG (XANAX) TAB PO PRN (20:45)
[2023-01-28] MEDS ORDERED: ANTACID SUSP 30 ML UDC (MYLANTA) PO PRN (20:45)
[2023-01-28] MEDS ORDERED: ACETAMINOPHEN 325 MG TABLET PO PRN (20:45)
[2023-01-28 20:48] VITALS: BP 171/75
[2023-01-28] MEDS: DOCUSATE SODIUM 100 MG (COLACE) CAP PO SCH (21:09)
[2023-01-28] MEDS ORDERED: RT-ALBUTEROL SULF 2.5 MG/3 ML PRE-MIX VIAL INH PRN (21:15)
[2023-01-28] MEDS: RT-ALBUTEROL SULF 2.5 MG/3 ML PRE-MIX VIAL INH SCH (21:27)
[2023-01-28] MEDS: NS IV 1000 ML 1,000 ML IV SCH (22:22)
[2023-01-28] MEDS: ENOXAPARIN 60 MG/0.6 ML (LOVENOX) SYR SC SCH (22:22)
[2023-01-28] MEDS: AZITHROMYCIN INJECTION 500 MG in NS (IVPB) 250 ML IV SCH (22:22)
[2023-01-28 23:54] VITALS: BP 140/82
[2023-01-29] MEDS: RT-ALBUTEROL SULF 2.5 MG/3 ML PRE-MIX VIAL INH SCH ×4 (03:41→21:44)
[2023-01-29 03:42] VITALS: BP 160/102
[2023-01-29 05:09] LABS: BASOPHILS # (AUTO) 0.1 10^3/uL (0.0-0.1); BASOPHILS % (AUTO) 1 % (0-10); EOSINOPHILS % (AUTO) 0 % (0-10); HEMATOCRIT 43 % (35-52); HEMOGLOBIN 13.1 g/dL (11.5-16.0); LYMPHOCYTES % (AUTO) 12 % (12-44); MEAN CORPUSCULAR HEMOGLOBIN 29 pg (25-34); MEAN CORPUSCULAR HGB CONC 31 g/dL (32-36); MEAN CORPUSCULAR VOLUME 94 fL (80-99); MEAN PLATELET VOLUME 10.7 fL (9.0-12.2); MONOCYTES # (AUTO) 0.9 10^3/uL (0.0-1.0); MONOCYTES % (AUTO) 11 % (0-12); NEUTROPHILS # (AUTO) 5.8 10^3/uL (1.8-7.8); NEUTROPHILS % (AUTO) 75 % (42-75); PLATELET COUNT 272 10^3/uL (130-400); WHITE BLOOD COUNT 7.8 10^3/uL (4.3-11.0)
--- NOTE | 2023-01-29 05:15 | History & Physical-Hospitalist ---
History of Present Illness HPI/Chief Complaint Chief complaint: Shortness of breath HPI: This is a 32-year-old female morbidly obese at 456 pounds who presented to the ER with progressive shortness of breath. No evidence of any volume overload or elevated D-dimer to explain her symptoms. Cardiology consulted and echocardiogram ordered. She is doing much better given IV fluids due to my suspected atypical pneumonia on chest x-ray in case IV fluid brings out the airspace disease more prominently so we will Hep-Lock IV fluid move her down to fourth floor and monitor closely. Source: patient Exam Limitations: no limitations Date Seen 01/29/23 Time Seen by a Provider: 11:00 Attending Physician No,Local Physician PCP Admitting Physician: Kathy Lambert DO Attending Physician: Kathy Lambert DO Referring Physician Date of Admission January 28, 2023 at 20:31 Home Medications & Allergies Home Medications Reviewed patient Home Medication Reconciliation performed by pharmacy medication reconciliations chief ophthalmic technician and/or nursing. Patients Allergies have been reviewed. Allergies Allergies Coded Allergies levofloxacin (Verified Allergy, Severe, JOINT PAIN/"POPPING", 06/22/19) sulfamethoxazole (Verified Allergy, Severe, FLUSHING, HOT, DIZZY, N/V, 06/22/19) trimethoprim (Verified Allergy, Severe, FLUSHING, HOT, DIZZY, N/V, 06/22/19) cefaclor (Verified Allergy, Mild, HIVES, 06/22/19) Past Hylzjer-Addpze-Fwlqft Hx Patient Social History Marrital Status: single Employed/Student: unemployed Tobacco Use?: No Smoking Status: Never a Smoker Use of E-Cig and/or Vaping dev: No Substance use?: No Alcohol Use?: No Pt feels they are or have been: No Immunizations Up To Date First/Initial COVID19 Vaccinat: DENIES Tetanus Booster (TDap): More Than 5 Years Hepatitis A: Yes Hepatitis B: Yes PED Vaccines UTD: Yes Seasonal Allergies Seasonal Allergies: Yes Current Status status: No status: No Advance Directives: No Communicates: Verbally Primary Language: Czech Preferred Spoken Language: Czech Is interpretation needed?: No Sensory deficits: Vision impairment Implanted or Applied Medical D: None Past Medical History Surgeries: Adenoidectomy, Tonsillectomy Currently Using CPAP: No Currently Using BIPAP: No Headaches /Migraines Sexually Transmitted Disease: No HIV/AIDS: No Gastroesophageal Reflux Hypothyroidsim Loss of Vision: Denies Hearing Impairment: Denies Anxiety Blood Disorders: Yes (antiphospholipid syndrome) Adverse Reaction/Blood Tranf: No BMI >50 Family Medical History Asthma 19 MOTHER Congenital disease 19 MOTHER Diabetes mellitus 19 FATHER FH: Gzmav-Mgeshcaxb-Obaxf syndrome 19 FATHER FH: factor V Leiden mutation G8 SISTER FH: liver cancer 19 FATHER FH: skin cancer 19 MOTHER Gout 19 MOTHER Hypertension 19 FATHER 19 MOTHER Osteoporotic fracture in parent Review of Systems Constitutional: see HPI EENTM: no symptoms reported Respiratory: dyspnea on exertion Cardiovascular: no symptoms reported Gastrointestinal: no symptoms reported Genitourinary: no symptoms reported Musculoskeletal: no symptoms reported Skin: no symptoms reported Psychiatric/Neurological: No Symptoms Reported All Other Systems Reviewed Negative Unless Noted: Yes Physical Exam Physical Exam Vital Signs Vital Signs - First Documented 01/27/23 21:45 Temp 37.7 Pulse 120 Resp 20 B/P (MAP) 140/84 (102) Pulse Ox 93 O2 Delivery Nasal Cannula O2 Flow Rate 2.50 Capillary Refill : Less Than 3 Seconds Height, Weight, BMI Height: '" Weight: lbs. oz. kg; 74.43 BMI Method: General Appearance: No Apparent Distress, Anxious, Chronically ill, Obese Eyes: Right Eye Normal Inspection, Right Eye PERRL HEENT: PERRL/EOMI, Normal ENT Inspection, Pharynx Normal, Moist Mucous Membranes Neck: Full Range of Motion, Normal Inspection, Non Tender Respiratory: Chest Non Tender, Lungs Clear, No Accessory Muscle Use, No Respiratory Distress, Decreased Breath Sounds Cardiovascular: Regular Rate, Rhythm, No Edema, No Gallop, No JVD, No Murmur, Normal Peripheral Pulses Gastrointestinal: Normal Bowel Sounds, No Organomegaly, No Pulsatile Mass, Non Tender, Soft Back: Normal Inspection, No CVA Tenderness, No Vertebral Tenderness Extremity: Normal Capillary Refill, Normal Inspection, Normal Range of Motion, Non Tender, No Calf Tenderness, No Pedal Edema Neurologic/Psychiatric: Alert, Oriented x3, No Motor/Sensory Deficits, Normal Mood/Affect Skin: Normal Color, Warm/Dry Lymphatic: No Adenopathy Results Results/Procedures Labs Laboratory Tests 01/28/23 16:45 01/28/23 17:20 01/29/23 05:02 Patient resulted labs reviewed. Assessment/Plan Admission Diagnosis Assessment: Acute and progressive dyspnea with hypoxia Tachycardia Subtle abnormality on chest x-ray given IV fluid to rule out pneumonia Super morbid obesity BMI 75 Hypothyroidism noncompliant with supplement Plan: Hep-Lock IV fluid Appreciate cardiology Echo IV antibiotics Admission Status: Observation KATHY LAMBERT DO Jan 29, 2023 05:15
[2023-01-29 05:21] LABS: ALBUMIN 3.7 GM/DL (3.2-4.5); POTASSIUM 4.1 MMOL/L (3.6-5.0)
[2023-01-29 05:22] LABS: CALCIUM 9.1 MG/DL (8.5-10.1)
[2023-01-29 05:23] LABS: TOTAL PROTEIN 7.7 GM/DL (6.4-8.2)
[2023-01-29 05:25] LABS: BILIRUBIN,TOTAL 0.5 MG/DL (0.1-1.0)
[2023-01-29 05:27] LABS: CREATININE SERUM 0.75 MG/DL (0.60-1.30)
[2023-01-29 08:00] VITALS: BP 155/90
[2023-01-29] MEDS: DOCUSATE SODIUM 100 MG (COLACE) CAP PO SCH ×2 (08:07→21:43)
--- NOTE | 2023-01-29 08:37 | Consultation-Cardiology ---
HPI-Cardiology Cardiology Consultation: Date of Consultation 01/29/23 Time Seen by a Provider: 08:15 Date of Admission 01-28-23 Attending Physician Qi,[facility] Physician Admitting Physician Admitting Physician: Kathy De La Rosa DO Attending Physician: Kathy De La Rosa DO Consulting Physician Anna Marie Guerrero MD Provider requesting consult: Dr. De La Rosa HPI: Chief Complaint: Tachycardia Ms. Hutchison is a 32 yr old female admitted to [facility] from the ED in [facility]. She reports approx a month ago she was treated for pneumonia as an out pt. She reports she was feeling better up until last week when she developed congestion with productive cough. She reports trying OTC medications, which did not improve her symptoms. She reports on Thursday she felt increasing SOB, fever, chills, freq lose cough prompting her to go to [facility] Urgent Care. She reports they sent her to [facility] ED. She reports she has had tightness in her chest related to her SOB. No c/o palpitations, syncope, near syncope. No c/o LE swelling. She reports she does not take any Rx medications at this time, but she is supposed to be taking thyroid replacement. Review of Systems-Cardiology Review of Systems Constitutional: chills, fever, malaise Eyes: No vision change Ears/Nose/Throat: No epistaxis, No recent hearing loss Respiratory: As described under HPI Cardiovascular: As described under HPI Gastrointestinal: No constipation, No diarrhea; nausea; No vomiting Genitourinary: No dysuria, No hematuria Musculoskeletal: no symptoms reported Skin: No rash on exposed areas, No ulcerations on exposed areas Psychiatric/Neurological: No anxiety, No depression, No seizure, No focal weakness, No syncope Hematologic: No bleeding abnormalities BDT-Vwbzqm-Gvleqc Hx Patient Social History 2nd Hand Smoke Exposure: No Have you traveled recently?: No Alcohol Use?: No Pt feels they are or have been: No Immunizations Up To Date Tetanus Booster (TDap): Unknown Past Medical History PMH As described under Assessment. Family Medical History Family Medical History: She reports her father had WPW and CAD (CAGB in his mid 50's). She reports her mother has HTN. She reports a sister with Factor V Leiden. Family History: 19 FATHER Diabetes mellitus Hypertension FH: Gxaef-Jbpcbmerx-Vzusm syndrome FH: liver cancer 19 MOTHER Hypertension Asthma Congenital disease FH: skin cancer Gout G8 SISTER FH: factor V Leiden mutation Relation not specified for: Osteoporotic fracture in parent Allergies and Home Medications Allergies Coded Allergies: levofloxacin (Verified Allergy, Severe, JOINT PAIN/"POPPING", 06/22/19) sulfamethoxazole (Verified Allergy, Severe, FLUSHING, HOT, DIZZY, N/V, 06/22/19) trimethoprim (Verified Allergy, Severe, FLUSHING, HOT, DIZZY, N/V, 06/22/19) cefaclor (Verified Allergy, Mild, HIVES, 06/22/19) Patient Home Medication List Azithromycin (Azithromycin) 250 Mg Tablet, 250 MG PO DAILY Prescribed by: KATHY DE LA ROSA on 01/30/23 1210 Levothyroxine Sodium (Synthroid) 75 Mcg Tablet, 75 MCG PO DAILY@0630 Prescribed by: KATHY DE LA ROSA on 01/30/23 121 Metformin HCl (Metformin HCl) 500 Mg Tablet, 500 MG PO BID Prescribed by: KATHY DE LA ROSA on 01/30/231209 Metoprolol Succinate (Metoprolol Succinate) 50 Mg Tab.er.24h, 50 MG PO DAILY Prescribed by: KATHY DE LA ROSA on 01/30/231209 Montelukast Sodium (Singulair) 10 Mg Tablet, 10 MG PO DAILY Prescribed by: KATHY DE LA ROSA on 01/30/23 121 Discontinued Medications Amoxicillin/Potassium Clav (Augmentin 875-125 Tablet) 1 Each Tablet, 1 EACH PO BID Discontinued Reason: No Longer Taking Prescribed by: JARRELL CARDONA on 07/25/201209 Last Action: Discontinued Docusate Sodium (Dok) 100 Mg Capsule, 100 MG PO BID PRN for CONSTIPATION-1ST LINE Discontinued Reason: No Longer Taking Prescribed by: WILLIAM ODEN on 07/20/20833 Last Action: Discontinued Enoxaparin Sodium (Enoxaparin Sodium) 60 Mg/0.6 Ml Syringe, 60 MG SQ BID Discontinued Reason: No Longer Taking Prescribed by: WILLIAM ODEN on 07/20/20833 Last Action: Discontinued Hydrocodone/Acetaminophen (Hydrocodone-Acetamin 5-325 mg) 1 Each Tablet, 1-2 TAB PO Q6HR PRN for PAIN-MODERATE (5-7) Discontinued Reason: No Longer Taking Prescribed by: WILLIAM ODEN on 07/20/20833 Last Action: Discontinued Ibuprofen (Ibu) 600 Mg Tablet, 600 MG PO Q6HR Discontinued Reason: No Longer Taking Prescribed by: WILLIAM ODEN on 07/20/20 0834 Last Action: Discontinued Levothyroxine Sodium (Levothyroxine Sodium) 25 Mcg Tablet, 25 MCG PO DAILY, (Reported) Discontinued Reason: No Longer Taking Entered as Reported by: CHEYENNE SUAZO on 06/22/191314 Last Action: Discontinued Vit W-Ca,Fe,FA(<1 mg) ( Vitamins) 1 Each Tablet, 1 EACH PO DAILY, (Reported) Discontinued Reason: No Longer Taking Entered as Reported by: CHEYENNE SUAZO on 06/22/191314 Last Action: Discontinued Spironolactone (Spironolactone) 100 Mg Tablet, 100 MG PO BID, (Reported) Discontinued Reason: No Longer Taking Entered as Reported by: CHEYENNE SUAZO on 06/22/191314 Last Action: Discontinued Physical Exam-Cardiology Physical Exam Vital Signs/I&O 01/30/23 01/30/23 01/30/23 01/30/23 01:00 02:57 04:00 07:00 Temp 37.0 Pulse 100 91 101 Resp 20 B/P (MAP) 135/85 (102) Pulse Ox 94 92 O2 Delivery Nasal Cannula Nasal Cannula O2 Flow Rate 2.00 2.00 01/30/23 01/30/23 01/30/23 07:48 08:05 08:08 Temp 36.4 Pulse 98 Resp 19 B/P (MAP) 111/73 (86) Pulse Ox 92 93 93 O2 Delivery Nasal Cannula Nasal Cannula O2 Flow Rate 2.00 2.00 2.00 01/29/23 23:59 Intake Total 2065 ml Output Total 1400 ml Balance 665 ml Capillary Refill : Less Than 3 Seconds Constitutional: AAO x 3, well-developed, well-nourished HEENT: PERRL, hearing is well preserved, oral hygience is good Neck: No carotid bruit; carotid pulses are 2 + bilaterally Respiratory: No accessory muscle use, No respiratory distress; chest expansion is symmetric, chest is bilaterally symmetric, other (fair air entry; freq prod cough) Cardiovascular: tachycardia, S1 and S2 Gastrointestinal: No tender; soft; No guarding Extremities: no lower extremity edema bilateral Neurologic/Psychiatric: grossly intact (moves all extremities) Skin: No rash on exposed areas, No ulcerations on exposed areas Data Review Labs Laboratory Tests 01/30/23 05:44: White Blood Count 9.9, Red Blood Count 4.58, Hemoglobin 13.3, Hematocrit 43, Mean Corpuscular Volume 94, Mean Corpuscular Hemoglobin 29, Mean Corpuscular Hemoglobin Concent 31L, Red Cell Distribution Width 15.0H, Platelet Count 301, Mean Platelet Volume 10.6, Immature Granulocyte % (Auto) 2, Neutrophils (%) (Auto) 64, Lymphocytes (%) (Auto) 21, Monocytes (%) (Auto) 13H, Eosinophils (%) (Auto) 0, Basophils (%) (Auto) 1, Neutrophils # (Auto) 6.4, Lymphocytes # (Auto) 2.1, Monocytes # (Auto) 1.2H, Eosinophils # (Auto) 0.0, Basophils # (Auto) 0.1, Immature Granulocyte # (Auto) 0.2H, Sodium Level 138, Potassium Level 4.4, Chloride Level 101, Carbon Dioxide Level 28, Anion Gap 9, Blood Urea Nitrogen 9, Creatinine 0.73, Estimat Glomerular Filtration Rate 112, BUN/Creatinine Ratio 12, Glucose Level 201H, Calcium Level 9.1, Corrected Calcium 9.3, Total Bilirubin 0.4, Aspartate Amino Transf (AST/SGOT) 30, Alanine Aminotransferase (ALT/SGPT) 21, Alkaline Phosphatase 74, Total Protein 7.6, Albumin 3.7 Radiology NAME: HUNTER HUTCHISON [facility] REC#: [id number] PT STATUS: REG ER : 1990 PHYSICIAN: SOPHY PETERS DO ADMIT DATE: 01/28/23/ER FS Signed Date of Exam:01/28/23 CHEST PA/LAT (2 VIEW) INDICATION: Cough, dyspnea and hypoxia. TECHNIQUE: PA and lateral views of the chest are obtained. COMPARISON: There is no previous study available at this time for comparison. FINDINGS: Overall heart size is within normal limits. Pulmonary vascularity is prominent and there are patchy bilateral predominantly perihilar densities in both lungs without lobar consolidation, pneumothorax or pleural fluid. IMPRESSION: Patchy bilateral predominantly central densities likely represent edema and pneumonitis. Atypical pneumonia is not excluded. Dictated by: Dictated on workstation # [id number] Dict: 01/28/23 1725 Trans: 01/28/237 AS6 [id number] Interpreted by: NIURKA GUZMAN MD Electronically signed by: NIURKA GUZMAN MD 01/28/231806 ECG Impression ECG Initial ECG Rhythm: S.Tach A/P-Cardiology Assessment/Admission Diagnosis Pneumonia with hypoxia - management per medical services Tachycardia - likely d/t hypoxia/pneumonia Obesity - BMI approx 74 Hypothyroidism - has not been taking replacement tx PCOS Anti-phospholipid sydrome Discussion and Recomendations Pneumonia with hypoxia - treatment per medical services Tachycardia - likely d/t pneumonia/hypoxia - treat with BB Hypertension - treat with BB Echocardiogram to eval structure and function Monitor lab closely Replace electrolytes as indicated Further recs will be based on her hospital course We would like to thank medical services for this consult OTILIO GUERRERO Jan 29, 2023 08:37
[2023-01-29] MEDS: NS IV 1000 ML 1,000 ML IV SCH (09:30)
[2023-01-29] MEDS: ENOXAPARIN 60 MG/0.6 ML (LOVENOX) SYR SC SCH ×2 (09:31→21:51)
[2023-01-29] MEDS: meTOproloL SUCCINATE 50 MG (TOPROL XL) TAB PO SCH (09:31)
[2023-01-29] MEDS: FLUTICASONE/VILANTEROL 100 MCG 14'S (BREO) IH SCH (10:37)
--- NOTE | 2023-01-29 11:46 | Diagnostic Imaging Report ---
INDICATION: Shortness of breath. EXAMINATION: Portable chest at 07:54 a.m. FINDINGS: There is some alveolar nodular infiltrate throughout the right lung and at the left lung base. There is no effusion or pneumothorax. Heart size and pulmonary vascularity are upper limits of normal. IMPRESSION: Patchy airspace disease in both lungs suspicious for pneumonia. Dictated by: Dictated on workstation # [id number]
[2023-01-29 12:00] VITALS: BP 150/95
[2023-01-29 15:03] LABS: TSH (THYROID ANALYZER) 5.64 UIU/ML (0.35-4.94)
[2023-01-29 15:39] LABS: FREE T4 (FREE THYROXINE) 1.12 NG/DL (0.70-1.48)
[2023-01-29 15:40] VITALS: BP 144/83
--- NOTE | 2023-01-29 17:35 | Consultation-Cardiology ---
HPI-Cardiology Cardiology Consultation: Date of Consultation 01/29/23 Time Seen by a Provider: 09:30 Date of Admission Attending Physician Qi,Local Physician Admitting Physician Admitting Physician: Kathy Lambert DO Attending Physician: Kathy Lambert DO Consulting Physician MARCE SAUCEDO MD, MA, FACP, FACC, [facility], CCDS Physician requesting consult: Dr Lambert HPI: Chief Complaint: Reason for Card consult: Tachycardia Ms. Hutchison is a 32 yr old female admitted to [facility] from the ED in [facility]. She reports approx a month ago she was treated for pneumonia as an out pt. She reports she was feeling better up until last week when she developed congestion with productive cough. She reports trying OTC medications, which did not improve her symptoms. She reports on Thursday she felt increasing SOB, fever, chills, freq lose cough prompting her to go to [facility] Urgent [facility]. She reports they sent her to [facility] ED. She reports she has had tightness in her chest related to her SOB. No c/o palpitations, syncope, near syncope. No c/o LE swelling. She reports she does not take any Rx medications at this time, but she is supposed to be taking thyroid replacement. Review of Systems-Cardiology Review of Systems Constitutional: chills, fever, malaise Eyes: No vision change Ears/Nose/Throat: No epistaxis, No recent hearing loss Respiratory: As described under HPI Cardiovascular: As described under HPI Gastrointestinal: No constipation, No diarrhea; nausea; No vomiting Genitourinary: No dysuria, No hematuria Musculoskeletal: no symptoms reported Skin: No rash on exposed areas, No ulcerations on exposed areas Psychiatric/Neurological: No anxiety, No depression, No seizure, No focal weakness, No syncope Hematologic: No bleeding abnormalities YVH-Rfqcvg-Xelkaf Hx Patient Social History 2nd Hand Smoke Exposure: No Have you traveled recently?: No Alcohol Use?: No Pt feels they are or have been: No Immunizations Up To Date Tetanus Booster (TDap): Unknown Past Medical History PMH As described under Assessment. Family Medical History Family Medical History: She reports her father had WPW and CAD (CAGB in his mid 50's). She reports her mother has HTN. She reports a sister with Factor V Leiden. Family History: Asthma 19 MOTHER Congenital disease 19 MOTHER Diabetes mellitus 19 FATHER FH: Hiclq-Uxjejyjnn-Ugcfn syndrome 19 FATHER FH: factor V Leiden mutation G8 SISTER FH: liver cancer 19 FATHER FH: skin cancer 19 MOTHER Gout 19 MOTHER Hypertension 19 FATHER 19 MOTHER Osteoporotic fracture in parent Allergies and Home Medications Allergies Coded Allergies: levofloxacin (Verified Allergy, Severe, JOINT PAIN/"POPPING", 06/22/19) sulfamethoxazole (Verified Allergy, Severe, FLUSHING, HOT, DIZZY, N/V, 06/22/19) trimethoprim (Verified Allergy, Severe, FLUSHING, HOT, DIZZY, N/V, 06/22/19) cefaclor (Verified Allergy, Mild, HIVES, 06/22/19) Patient Home Medication List Home Medication List Reviewed: Yes No Active Prescriptions or Reported Meds Physical Exam-Cardiology Physical Exam Vital Signs/I&O 01/29/23 01/29/23 01/29/23 01/29/23 07:19 08:00 08:10 10:38 Temp 35.9 Pulse 113 115 Resp 16 B/P (MAP) 155/90 (111) Pulse Ox 90 90 O2 Delivery Nasal Cannula Nasal Cannula Nasal Cannula O2 Flow Rate 2.00 2.50 2.00 01/29/23 01/29/23 01/29/23 01/29/23 12:00 12:35 14:00 14:10 Temp 36.4 Pulse 106 106 107 Resp 18 B/P (MAP) 150/95 (113) Pulse Ox 91 91 O2 Delivery Nasal Cannula Nasal Cannula O2 Flow Rate 2.00 2.00 01/29/23 15:40 Temp 36.0 Pulse 101 Resp 18 B/P (MAP) 144/83 (103) Pulse Ox 92 O2 Delivery Nasal Cannula O2 Flow Rate 2.00 01/28/23 23:59 Intake Total 1555 ml Output Total 100 ml Balance 1455 ml Capillary Refill : Less Than 3 Seconds Constitutional: AAO x 3, well-developed, well-nourished HEENT: PERRL, hearing is well preserved, oral hygience is good Neck: No carotid bruit; carotid pulses are 2 + bilaterally Respiratory: No accessory muscle use, No respiratory distress; chest expansion is symmetric, chest is bilaterally symmetric, other (fair air entry; freq prod cough) Cardiovascular: tachycardia, S1 and S2 Gastrointestinal: No tender; soft; No guarding Extremities: no lower extremity edema bilateral Neurologic/Psychiatric: grossly intact (moves all extremities) Skin: No rash on exposed areas, No ulcerations on exposed areas Data Review Labs Laboratory Tests 01/28/23 18:10: Blood Gas Puncture Site LW, Blood Gas Patient Temperature 36.1, Arterial Blood pH 7.44H, Arterial Blood Partial Pressure CO2 46H, Arterial Blood Partial Pressure O2 62L, Arterial Blood HCO3 31H, Arterial Blood Total CO2 32.6H, Arterial Blood Oxygen Saturation 92L, Arterial Blood Base Excess 6.1H, Alex Test OK, Blood Gas Ventilator Setting NO, Blood Gas Inspired Oxygen 2 L 01/29/23 05:02: White Blood Count 7.8, Red Blood Count 4.54, Hemoglobin 13.1, Hematocrit 43, Mean Corpuscular Volume 94, Mean Corpuscular Hemoglobin 29, Mean Corpuscular Hemoglobin Concent 31L, Red Cell Distribution Width 15.2H, Platelet Count 272, Mean Platelet Volume 10.7, Immature Granulocyte % (Auto) 1, Neutrophils (%) (Auto) 75, Lymphocytes (%) (Auto) 12, Monocytes (%) (Auto) 11, Eosinophils (%) (Auto) 0, Basophils (%) (Auto) 1, Neutrophils # (Auto) 5.8, Lymphocytes # (Auto) 1.0, Monocytes # (Auto) 0.9, Eosinophils # (Auto) 0.0, Basophils # (Auto) 0.1, Immature Granulocyte # (Auto) 0.1, Sodium Level 135, Potassium Level 4.1, Chloride Level 101, Carbon Dioxide Level 23, Anion Gap 11, Blood Urea Nitrogen 6L, Creatinine 0.75, Estimat Glomerular Filtration Rate 108, BUN/Creatinine Ratio 8, Glucose Level 283H, Calcium Level 9.1, Corrected Calcium 9.3, Total Bilirubin 0.5, Aspartate Amino Transf (AST/SGOT) 17, Alanine Aminotransferase (ALT/SGPT) 20, Alkaline Phosphatase 71, Total Protein 7.7, Albumin 3.7 A/P-Cardiology Assessment/Admission Diagnosis Pneumonia with hypoxia - management per Dr Lambert Tachycardia - likely d/t hypoxia/pneumonia Obesity - BMI approx 74 Hypothyroidism - has not been taking replacement tx PCOS Anti-phospholipid sydrome Discussion and Recomendations Pneumonia with hypoxia - treatment per Dr Lambert Tachycardia - likely d/t pneumonia/hypoxia - treat with BB Hypertension - treat with BB Echocardiogram to eval structure and function Monitor lab closely Replace electrolytes as indicated Further recs will be based on her hospital course We would like to thank Medical services for this consult MARCE SAUCEDO MD FACP FACC CCDS Jan 29, 2023 17:35
[2023-01-29 20:14] VITALS: BP 175/87
[2023-01-29] MEDS: AZITHROMYCIN INJECTION 500 MG in NS (IVPB) 250 ML IV SCH (21:51)
[2023-01-30 00:12] VITALS: BP 165/85
[2023-01-30] MEDS: RT-ALBUTEROL SULF 2.5 MG/3 ML PRE-MIX VIAL INH SCH ×2 (02:57→08:04)
[2023-01-30 04:00] VITALS: BP 135/85
[2023-01-30 06:07] LABS: BASOPHILS # (AUTO) 0.1 10^3/uL (0.0-0.1); BASOPHILS % (AUTO) 1 % (0-10); EOSINOPHILS % (AUTO) 0 % (0-10); HEMATOCRIT 43 % (35-52); HEMOGLOBIN 13.3 g/dL (11.5-16.0); LYMPHOCYTES # (AUTO) 2.1 10^3/uL (1.0-4.0); LYMPHOCYTES % (AUTO) 21 % (12-44); MEAN CORPUSCULAR HEMOGLOBIN 29 pg (25-34); MEAN CORPUSCULAR HGB CONC 31 g/dL (32-36); MEAN CORPUSCULAR VOLUME 94 fL (80-99); MEAN PLATELET VOLUME 10.6 fL (9.0-12.2); MONOCYTES # (AUTO) 1.2 10^3/uL (0.0-1.0); MONOCYTES % (AUTO) 13 % (0-12); NEUTROPHILS # (AUTO) 6.4 10^3/uL (1.8-7.8); NEUTROPHILS % (AUTO) 64 % (42-75); PLATELET COUNT 301 10^3/uL (130-400); WHITE BLOOD COUNT 9.9 10^3/uL (4.3-11.0)
[2023-01-30 06:28] LABS: ALBUMIN 3.7 GM/DL (3.2-4.5); BILIRUBIN,TOTAL 0.4 MG/DL (0.1-1.0); CALCIUM 9.1 MG/DL (8.5-10.1); CREATININE SERUM 0.73 MG/DL (0.60-1.30); POTASSIUM 4.4 MMOL/L (3.6-5.0); TOTAL PROTEIN 7.6 GM/DL (6.4-8.2)
[2023-01-30] MEDS ORDERED: LEVOTHYROXINE 75 MCG (LEVOTHROID) TABLET PO SCH (06:30)
[2023-01-30] MEDS: FLUTICASONE/VILANTEROL 100 MCG 14'S (BREO) IH SCH (08:04)
[2023-01-30 08:08] VITALS: BP 111/73
[2023-01-30] MEDS: meTOproloL SUCCINATE 50 MG (TOPROL XL) TAB PO SCH (08:53)
[2023-01-30] MEDS: DOCUSATE SODIUM 100 MG (COLACE) CAP PO SCH (08:53)
[2023-01-30] MEDS: ENOXAPARIN 60 MG/0.6 ML (LOVENOX) SYR SC SCH (08:54)
[2023-01-30 12:00] VITALS: BP 121/66
[2023-01-30] MEDS ORDERED: AZIT250T12 PO (12:10)
[2023-01-30] MEDS ORDERED: METF-397 PO (12:10)
[2023-01-30] MEDS ORDERED: MONT-47 PO (12:10)
[2023-01-30] MEDS ORDERED: LEVO75TA PO (12:10)
[2023-01-30] MEDS ORDERED: METO50TA7 PO (12:10)
--- NOTE | 2023-01-30 12:10 | Discharge Summary ---
Discharge Summary Hospital Course Was the Problem List Reviewed?: Yes Problems/Dx: (1) Community acquired pneumonia (2) Morbid obesity with BMI of 70 and over, adult (3) Shortness of breath (4) Hypoxia Status: Acute (5) Tachycardia Status: Acute Hospital Course Date of Admission: January 28, 2023 at 20:31 Admission Diagnosis : Family Physician/Provider: No,Local Physician Date of Discharge: 01/30/23 Discharge Diagnosis: [ ] Hospital Course: Patient had a brief hospital course after she was admitted for shortness of breath and tachycardia and no source of hypoxia but chest x-ray did appear to be slightly abnormal patient was given IV fluids for tachycardia which improved kim t and repeat chest x-ray confirmed community-acquired pneumonia so she was placed on antibiotics with good resolution she did require 2 L of oxygen continuous and 4 L at discharge during exertion but super morbid obesity of BMI of 75 was the likely source of her hypoxia and she was discharged in improved condition Labs and Pending Lab Test: Laboratory Tests 01/30/23 05:44: White Blood Count 9.9, Red Blood Count 4.58, Hemoglobin 13.3, Hematocrit 43, Mean Corpuscular Volume 94, Mean Corpuscular Hemoglobin 29, Mean Corpuscular Hemoglobin Concent 31L, Red Cell Distribution Width 15.0H, Platelet Count 301, Mean Platelet Volume 10.6, Immature Granulocyte % (Auto) 2, Neutrophils (%) (Aut o) 64, Lymphocytes (%) (Auto) 21, Monocytes (%) (Auto) 13H, Eosinophils (%) (Auto) 0, Basophils (%) (Auto) 1, Neutrophils # (Auto) 6.4, Lymphocytes # (Auto) 2.1, Monocytes # (Auto) 1.2H, Eosinophils # (Auto) 0.0, Basophils # (Auto) 0.1, Immature Granulocyte # (Auto) 0.2H, Sodium Level 138, Potassium Level 4.4, Chloride Level 101, Carbon Dioxide Level 28, Anion Gap 9, Blood Urea Nitrogen 9, Creatinine 0.73, Estimat Glomerular Filtration Rate 112, BUN/Creatinine Ratio 12, Glucose Level 201H, Calcium Level 9.1, Corrected Calcium 9.3, Total Bilirubin 0.4, Aspartate Amino Transf (AST/SGOT) 30, Alanine Aminotransferase (ALT/SGPT) 21, Alkaline Phosphatase 74, Total Protein 7.6, Albumin 3.7 Home Meds Active No Active Prescriptions or Reported Medications Assessment/Pt Instructions PCP in 1 week Discharge Planning: <30 minutes discharge planning Discharge Instructions Discharge Diet: No Restrictions Discharge Physical Examination Vital Signs Vital Signs Date Time Temp Pulse Resp B/P (MAP) Pulse Ox O2 Delivery O2 Flow Rate FiO2 01/30/23 08:08 36.4 98 19 111/73 (86) 93 2.00 01/30/23 08:05 Nasal Cannula General Appearance: No Apparent Distress, WD/WN, Chronically ill Allergies: Coded Allergies: levofloxacin (Verified Allergy, Severe, JOINT PAIN/"POPPING", 06/22/19) sulfamethoxazole (Verified Allergy, Severe, FLUSHING, HOT, DIZZY, N/V, 06/22/19) trimethoprim (Verified Allergy, Severe, FLUSHING, HOT, DIZZY, N/V, 06/22/19) cefaclor (Verified Allergy, Mild, HIVES, 06/22/19) Discharge Summary Date of Admission January 28, 2023 at 20:31 Date of Discharge Discharge Date: Jan 30, 2023 Admission Diagnosis Assessment: Acute and progressive dyspnea with hypoxia Tachycardia Subtle abnormality on chest x-ray given IV fluid to rule out pneumonia Super morbid obesity BMI 75 Hypothyroidism noncompliant with supplement Plan: Hep-Lock IV fluid Appreciate cardiology Echo IV antibiotics CHRIS DE LA ROSA DO Jan 30, 2023 12:10
[2023-01-30 12:37] VITALS: BP 111/73
--- NOTE | 2023-01-30 12:39 | Progress Note - Cardiology ---
Cardiology SOAP Progress Note Subjective: Sitting up in bed Feels SOB is improving Continue to have lose cough No c/o CP or palpitations Objective: I&O/Vital Signs Constitutional: AAO x 3, well-developed, well-nourished Respiratory: No accessory muscle use, No respiratory distress; chest expansion is symmetric, chest is bilaterally symmetric, other (fair air entry; freq prod cough) Cardiovascular: tachycardia, S1 and S2 Gastrointestional: No tender; soft; No guarding Extremities: no lower extremity edema bilateral Neurologic/Psychiatric: grossly intact (moves all extremities) Skin: No rash on exposed areas, No ulcerations on exposed areas Results/Procedures: Labs A/P: Assessment: Pneumonia with hypoxia - management per Dr Lambert Tachycardia - likely d/t hypoxia/pneumonia - Echocardiogram of 01-29-23 showed LVEF 55-60%. PASP 45-50 mmHg Obesity - BMI approx 74 Hypothyroidism - has not been taking replacement tx PCOS Anti-phospholipid sydrome Plan: Pneumonia with hypoxia - treatment per Dr Lambert Tachycardia - likely d/t pneumonia/hypoxia - treat with BB Hypertension - treat with BB Monitor lab closely Replace electrolytes as indicated OTILIO GUERRERO Jan 30, 2023 12:39
[2023-01-30 16:00] VITALS: BP_SYST 134; BP_SYST 162; BP_DIAS 78; BP_DIAS 83
== END 2023-01-30 12:07 | disposition home or self-care (01) ==
LOC: EDUNIT# 16:42 → ER FS 16:45 → CSD 20:31 → 4TH 01-29 13:55
PROVIDERS: ADMIT Internal Medicine; ATTEND Internal Medicine
DX: J18.9 Pneumonia, unspecified organism (principal); R09.02 Hypoxemia; R06.00 Dyspnea, unspecified; E87.3 Alkalosis; R00.0 Tachycardia, unspecified; E66.01 Morbid (severe) obesity due to excess calories; Z68.45 Body mass index [BMI] 70 or greater, adult; E03.9 Hypothyroidism, unspecified; Z20.822 Contact with and (suspected) exposure to COVID-19; Z79.1 Long term (current) use of non-steroidal anti-inflammatories (NSAID); Z79.891 Long term (current) use of opiate analgesic; Z79.899 Other long term (current) drug therapy; Z88.1 Allergy status to other antibiotic agents; Z88.2 Allergy status to sulfonamides; Z91.09 Other allergy status, other than to drugs and biological substances
CPT/HCPCS: 36415; 71045; 71046; 80053 ×3; 82805; 83036; 83605; 83735; 83880; 84439; 84443; 84484; 85025 ×3; 85379; 86141; 87636; 93005; 94640 ×3; 94760 ×3; 94761; 96360; 96361; 96366; 96372 ×3; 96376; 99285; C8929; G0378 ×2; 93306